=== PATIENT | female | born 1970 | race Caucasian/White ===

== ENCOUNTER → 2016-08-07 | Outpatient (CLI) | payer MEDICARE, MEDICAID | LOC: RAD 13:49 | PROVIDERS: ATTEND Physician Assistant Medical | DX: M25.551 Pain in right hip (principal); M25.552 Pain in left hip; M16.0 Bilateral primary osteoarthritis of hip | CPT/HCPCS: 73522 ==

== ENCOUNTER 2016-09-14 18:10 | Emergency (ER) | payer MEDICARE, MEDICAID ==
--- NOTE | 2016-09-14 18:29 | ER Document Report ---
HPI - HPI Patient complains to provider of: increased number of abscess Onset: Last week Onset/Duration: Worse Quality of pain: Pressure Pain Level: 3 Context: 46 yo morbidly obese diabetic is c/o increased number of abscess. Saw her MD at [facility] and is on clindamycin 150 mg QID, now has new one on the left labia. Hx. MRSA. No fever or chills, glucose is runnin 150-180. Her MD told her to come to ER if she had worsening symptoms, and she had nausea this am. Associated Symptoms: None Exacerbated by: Denies Relieved by: Denies Similar symptoms previously: Yes Recently seen / treated by doctor: Yes - ROS ROS below otherwise negative: Yes Systems Reviewed and Negative: Yes All other systems reviewed and negative - DERM Skin Color: Normal Past Medical History - General Information source: Patient - Social History Smoking Status: Never Smoker Frequency of alcohol use: None Drug Abuse: None Lives with: Alone Family History: Reviewed & Not Pertinent Endocrine Medical History: Reports: Hx Diabetes Mellitus Type 2 Renal/ Medical History: Denies: Hx Peritoneal Dialysis Skin Medical History: Reports Hx MRSA Surgical Hx: Negative Vertical Provider Document - CONSTITUTIONAL Agree With Documented VS: Yes Exam Limitations: No Limitations General Appearance: No Apparent Distress - INFECTION CONTROL TRAVEL OUTSIDE OF THE [place] IN LAST 30 DAYS: No - HEENT HEENT: Normocephalic - NECK Neck: Supple - RESPIRATORY Respiratory: Breath Sounds Normal, No Respiratory Distress O2 Sat by Pulse Oximetry: 98 - CARDIOVASCULAR Cardiovascular: Regular Rate, Regular Rhythm - GI/ABDOMEN Gastrointestinal: Abdomen Soft, Abdomen Non-Tender Notes: 2 draining abscess that are mildly inflamed left mons pubis - REPRODUCTIVE Notes: left labia firm, red, with white central area, warm - MUSCULOSKELETAL/EXTREMETIES Musculoskeletal/Extremeties: BRAXTON MARIE - NEURO Level of Consciousness: Awake, Alert, Appropriate - DERM Integumentary: Abscess - draining, healing mons pubis, Course - Re-evaluation Re-evalutation: 09/14/16 20:30 labs are OK, glucose 166, white count normal - Vital Signs Vital signs: Temp Pulse Resp BP Pulse Ox 98.3 F 102 H 18 135/86 H 98 09/14/16 18:14 09/14/16 18:14 09/14/16 18:14 09/14/16 18:14 09/14/16 18:14 - Laboratory Result Diagrams: 09/14/16 19:10 09/14/16 19:10 Procedures - Incision and Drainage Left Labia Time completed: 20:34 Type: Simple Anesthetic type: 1% Lidocaine mL's of anesthetic: 5 Blade size: 11 I&D procedure: Betadine prep applied, Sterile dressing applied Incision Method: Incision made by scalpel Amount/type of drainage: deroofed, probed, no pus, just blood, inflammatory tissue Discharge - Discharge Clinical Impression: i and d left labia abscess, Folliculitis Condition: Good Disposition: HOME, SELF-CARE Instructions: Folliculitis ([facility]), Abscess ([facility]), Post Incision and Drainage, Clindamycin ([facility]), Bactroban Ointment ([facility]) Additional Instructions: warm compress warm soapy sitz bath use antibacterial soap in shower wound check in 2 days keep close watch on your glucose increase the clindamycin to 300mg four times per day return to the ER if worse use the bactroban on small lesions to prevent them from getting larger small amount of bactroban intranasal twice a day for 5 days Please complete the patient satisfaction survey if you get one, and return it.. If you do not receive a survey, then you can go to the [facility] website, [email or web address] and place your comments about your very good care. Thank you very much. It was a pleasure being your medical provider today. Prescriptions: Clindamycin HCl [Cleocin 150 mg Capsule] 300 mg PO TID #42 capsule
[2016-09-14] MEDS ORDERED: MUPIROCIN 2% OINTMENT 22 GM TP ONE (18:41)
[2016-09-14] MEDS ORDERED: CLINDAMYCIN HCL 150 MG CAPSULE PO ONE (19:03)
[2016-09-14 19:37] LABS: ABSOLUTE BASOPHILS # (AUTO) 0.1 10^3/uL (0.0-0.2); ABSOLUTE EOSINOPHILS # (AUTO) 0.2 10^3/uL (0.0-0.6); ABSOLUTE MONOCYTES (AUTO) 0.5 10^3/uL (0.1-1.4); ABSOLUTE NEUT (AUTO) 5.9 10^3/uL (1.7-8.2); BASOPHILS % (AUTO) 0.6 % (0-2); EOSINOPHILS % (AUTO) 2.5 % (0-6); HEMATOCRIT 41.2 % (36.0-47.0); HEMOGLOBIN 14.1 g/dL (12.0-15.5); HGB HCT DIFFERENCE 1.1; LYMPHOCYTES % (AUTO) 30.6 % (13-45); MEAN CORPUSCULAR HEMOGLOBIN 28.3 pg (27.0-33.4); MEAN CORPUSCULAR HGB CONC 34.3 g/dL (32.0-36.0); MEAN CORPUSCULAR VOLUME 83 fl (80-97); MONOCYTES % (AUTO) 5.6 % (3-13); RED BLOOD COUNT 4.98 10^6/uL (3.72-5.28); SEGMENTED NEUTROPHILS % (AUTO) 60.7 % (42-78); WHITE BLOOD COUNT 9.8 10^3/uL (4.0-10.5)
[2016-09-14] MEDS ORDERED: LIDOCAINE 1% INJ-PF (10 MG/ML) 30 ML SDV INJ ONE (19:42)
[2016-09-14 19:54] LABS: ALANINE AMINOTRANSFERASE 36 U/L (9-52); ALBUMIN 3.9 g/dL (3.5-5.0); ALKALINE PHOSPHATASE 51 U/L (38-126); ANION GAP 11 (5-19); ASPARTATE AMINO TRANSFERASE 21 U/L (14-36); BILIRUBIN,DIRECT 0.3 mg/dL (0.0-0.4); BILIRUBIN,TOTAL 0.3 mg/dL (0.2-1.3); BLOOD UREA NITROGEN 30 mg/dL (7-20); CALCIUM 9.5 mg/dL (8.4-10.2); CARBON DIOXIDE 25 mmol/L (22-30); CHLORIDE 105 mmol/L (98-107); CREATININE RESULT 0.65 mg/dL (0.52-1.25); GLUCOSE 166 mg/dL (75-110); POTASSIUM 4.6 mmol/L (3.6-5.0); SODIUM 140.6 mmol/L (137-145); TOTAL PROTEIN 6.5 g/dL (6.3-8.2)
[2016-09-14 20:55] VITALS: BP 126/60
== END 2016-09-14 20:55 | disposition home or self-care (01) ==
LOC: ER 18:10
PROC: 0H9AXZX Drainage of Inguinal Skin, External Approach, Diagnostic (ICD-10-PCS; principal; 2016-09-14)
DX: N76.4 Abscess of vulva (principal); L73.9 Follicular disorder, unspecified; R11.0 Nausea; E66.01 Morbid (severe) obesity due to excess calories; E11.9 Type 2 diabetes mellitus without complications; Z86.14 Personal history of Methicillin resistant Staphylococcus aureus infection
CPT/HCPCS: 99283; 36415; 87040; 85025; 80053; 56405; A9270 ×2; J3490

== ENCOUNTER 2016-12-28 13:47 | Emergency (ER) | payer MEDICARE, MEDICAID ==
[2016-12-28 13:52] VITALS: BP 136/72
--- NOTE | 2016-12-28 14:33 | ER Document Report ---
ED General - General Chief Complaint: Other Stated Complaint: FOOT PAIN Time Seen by Provider: 12/28/16 14:01 Notes: 46 yo female with hx/o DM, HTN c/o blister to right great toe and possible UTI. pt noted blister today. no pain or redness. pt does have hx/o MRSA and wanted to have the blister checked. she also c/o dysuria x 2 days. has urinary hesitancy. denies fever, abdominal pain , n/v. TRAVEL OUTSIDE OF THE [place] IN LAST 30 DAYS: No - HPI Onset: Other - 3d Onset/Duration: Gradual Quality of pain: Burning Pain Level: 2 Associated symptoms: denies: Allergy/hay fever, Fever, Leg swelling, Nausea Exacerbated by: Denies Relieved by: Denies Similar symptoms previously: Yes Recently seen / treated by doctor: No - Related Data Allergies/Adverse Reactions: No Known Allergies Allergy (Verified 12/28/16 13:49) Past Medical History - General Information source: Patient - Social History Smoking Status: Current Every Day Smoker Chew tobacco use (# tins/day): No Frequency of alcohol use: None Drug Abuse: None Lives with: Family Family History: Reviewed & Not Pertinent - Medical History Medical History: Other - morbid obesity - Past Medical History Cardiac Medical History: Reports: Hx Hypercholesterolemia, Hx Hypertension Endocrine Medical History: Reports: Hx Diabetes Mellitus Type 2 Renal/ Medical History: Denies: Hx Peritoneal Dialysis GI Medical History: Reports: Hx Ulcer Musculoskeltal Medical History: Reports Hx Arthritis Surgical Hx: Negative Review of Systems - Review of Systems Constitutional: No symptoms reported EENT: No symptoms reported Cardiovascular: No symptoms reported Respiratory: No symptoms reported Gastrointestinal: No symptoms reported Genitourinary: See HPI, Burning, Dysuria, Frequency. denies: Discharge, Flank pain, Hematuria, Incontinence, Urgency Female Genitourinary: No symptoms reported Musculoskeletal: No symptoms reported Skin: No symptoms reported Hematologic/Lymphatic: No symptoms reported Neurological/Psychological: No symptoms reported Physical Exam - Vital signs Vitals: Temp Pulse Resp BP Pulse Ox 97.3 F 104 H 20 136/72 H 94 12/28/16 13:49 12/28/16 13:49 12/28/16 13:49 12/28/16 13:49 12/28/16 13:49 Interpretation: Normal - General General appearance: Appears well, Alert In distress: None - HEENT Head: Normocephalic, Atraumatic Eyes: Normal Pupils: PERRL - Respiratory Respiratory status: No respiratory distress Chest status: Nontender Breath sounds: Normal Chest palpation: Normal - Cardiovascular Rhythm: Regular Heart sounds: Normal auscultation Murmur: No - Abdominal Inspection: Normal Distension: No distension Bowel sounds: Normal Tenderness: Nontender Organomegaly: No organomegaly - Back Back: Normal, Nontender. No: CVA tenderness - Extremities General upper extremity: Normal inspection, Nontender, Normal color, Normal ROM , Normal temperature General lower extremity: Normal inspection, Nontender, Normal color, Normal ROM , Normal temperature, Normal weight bearing. No: Judith's sign Foot: Other - large callous to lateral right great toe. discrete bulla lateral to the callous. no surrounding erythema. nontender. no involvement of nail - Neurological Neuro grossly intact: Yes Cognition: Normal Orientation: AAOx4 [place] Coma Scale Eye Opening: Spontaneous [place] Coma Scale Verbal: Oriented [place] Coma Scale Motor: Obeys Commands [place] Coma Scale Total: 15 Speech: Normal Motor strength normal: LUE, RUE, LLE, RLE Sensory: Normal - Psychological Associated symptoms: Normal affect, Normal mood - Skin Skin Temperature: Warm Skin Moisture: Dry Skin Color: Normal Course - Re-evaluation Re-evalutation: 12/28/16 15:21 urinalysis unremarkable. but will start antibiotic based on symptoms and hx/o DM and wait for urine culture. pt is afebrile, nontoxic and stable for discharge. - Vital Signs Vital signs: Temp Pulse Resp BP Pulse Ox 97.3 F 104 H 20 136/72 H 94 12/28/16 13:49 12/28/16 13:49 12/28/16 13:49 12/28/16 13:49 12/28/16 13:49 Discharge - Discharge Clinical Impression: Dysuria Toe blister without infection Qualifiers: Encounter type: initial encounter Laterality: right Qualified Code(s): S90.424A - Blister (nonthermal), right lesser toe(s), initial encounter Condition: Stable Instructions: Urinary Tract Infection ([facility]), Antibiotic Therapy ([facility]), Urinary Anesthetic Agent ([facility]) Additional Instructions: Take antibiotic as prescribed follow up with your primary care if symptoms persist return to ER for high fever, kidney pain or worsening of status Your toe blister is not infected at this time Keep your blister intact, do not pop it If blister pops, apply antibiotic ointment and bandaid and follow up with primary care Prescriptions: Fluconazole [Diflucan] 150 mg PO ONCE PRN #1 tablet PRN Reason: Nitrofurantoin Macrocrystal [Macrodantin] 100 mg PO QID #28 capsule Phenazopyridine HCl [Pyridium 200 mg Tablet] 200 mg PO TID #15 tablet
[2016-12-28 14:58] LABS: AMORPHOUS SEDIMENT,URINE 2+ /HPF; APPEARANCE,URINE TURBID; BILIRUBIN,URINE NEGATIVE (NEGATIVE); GLUCOSE, URINE NEGATIVE (NEGATIVE); KETONES,URINE NEGATIVE (NEGATIVE); LEUKOCYTE ESTERASE,URINE NEGATIVE (NEGATIVE); NITRITE,URINE NEGATIVE (NEGATIVE); PROTEIN,URINE NEGATIVE (NEGATIVE); URINE SPECIFIC GRAVITY 1.021; UROBILINOGEN,URINE NEGATIVE mg/dL (<2.0)
== END 2016-12-28 15:27 | disposition home or self-care (01) ==
LOC: ER 13:47
DX: S90.421A Blister (nonthermal), right great toe, initial encounter (principal); X58.XXXA Exposure to other specified factors, initial encounter; Z86.14 Personal history of Methicillin resistant Staphylococcus aureus infection; R30.0 Dysuria; R39.11 Hesitancy of micturition; R35.0 Frequency of micturition; L84 Corns and callosities; E11.9 Type 2 diabetes mellitus without complications; I10 Essential (primary) hypertension; F17.200 Nicotine dependence, unspecified, uncomplicated
CPT/HCPCS: 81001; 99283

== ENCOUNTER 2017-01-22 23:06 | Emergency (ER) | payer MEDICARE, MEDICAID ==
[2017-01-23 02:49] LABS: ANION GAP 10 (5-19); BLOOD UREA NITROGEN 32 mg/dL (7-20); CALCIUM 9.1 mg/dL (8.4-10.2); CARBON DIOXIDE 26 mmol/L (22-30); CHLORIDE 105 mmol/L (98-107); CREATININE RESULT 0.84 mg/dL (0.52-1.25); GLUCOSE 110 mg/dL (75-110); POTASSIUM 4.9 mmol/L (3.6-5.0); SODIUM 140.6 mmol/L (137-145)
--- NOTE | 2017-01-23 02:56 | ER Document Report ---
ED General - General Chief Complaint: Weakness Stated Complaint: WEAKNESS Time Seen by Provider: 01/23/17 01:56 Notes: Patient is a 46-year-old female with a past medical history of morbid obesity, sleep apnea, chronic pain, on a fentanyl patch who presents with 3 days of generalized fatigue and concerns about a low blood pressure. She was started on the fentanyl patch 3 days ago and notes that her symptoms of generalized fatigue and weakness started since that time. She has not spoken to her pain management physician regarding these concerns. She also notes that she is having difficulty urinating although admits that she has urinated today. She denies any cough, shortness of breath, headache, neck pain, chest pain, or altered mental status. No fever or constitutional symptoms. Denies any vomiting or diarrhea. Nothing seems to improve or worsen her symptoms. When EMS did write patient's home they removed the fentanyl patch and patient blood pressure has been noted to normalize since that time. TRAVEL OUTSIDE OF THE [place] IN LAST 30 DAYS: No - Related Data Allergies/Adverse Reactions: No Known Allergies Allergy (Verified 01/09/17 18:26) Past Medical History - General Information source: Patient - Social History Smoking Status: Never Smoker Frequency of alcohol use: None Drug Abuse: None Lives with: Family Family History: Arthritis, DM Patient has suicidal ideation: No Patient has homicidal ideation: No - Past Medical History Cardiac Medical History: Reports: Hx Hypercholesterolemia, Hx Hypertension Endocrine Medical History: Reports: Hx Diabetes Mellitus Type 2 Renal/ Medical History: Denies: Hx Peritoneal Dialysis GI Medical History: Reports: Hx Ulcer Musculoskeltal Medical History: Reports Hx Arthritis Psychiatric Medical History: Reports: Hx Depression - anxiety Past Surgical History: Reports: Other - Ventral hernia repair Review of Systems - Review of Systems Notes: Constitutional: Negative for fever. HENT: Negative for sore throat. Eyes: Negative for visual changes. Cardiovascular: Negative for chest pain. Respiratory: Negative for shortness of breath. Gastrointestinal: Negative for abdominal pain, vomiting or diarrhea. Genitourinary: Negative for dysuria. Musculoskeletal: Negative for back pain. Skin: Negative for rash. Neurological: Negative for headaches, weakness or numbness. 10 point ROS negative except as marked above and in HPI. Physical Exam - Vital signs Vitals: Temp Pulse Resp BP Pulse Ox 97.7 F 70 18 112/52 L 94 01/22/17 23:24 01/22/17 23:24 01/22/17 23:24 01/22/17 23:24 01/22/17 23:24 Interpretation: Normal Notes: PHYSICAL EXAMINATION: GENERAL: Morbidly obese female in no acute distress HEAD: Atraumatic, normocephalic. EYES: Pupils equal round and reactive to light, extraocular movements intact, sclera anicteric, conjunctiva are normal. ENT: nares patent, oropharynx clear without exudates. Moderately dry mucous membranes. NECK: Normal range of motion, supple without lymphadenopathy LUNGS: Breath sounds clear to auscultation bilaterally and equal. No wheezes rales or rhonchi. HEART: Regular rate and rhythm without murmurs ABDOMEN: Morbidly obese abdomen soft, nontender, normoactive bowel sounds. No guarding, no rebound. No masses appreciated. EXTREMITIES: Normal range of motion, no pitting or edema. No cyanosis. NEUROLOGICAL: No focal neurological deficits. Moves all extremities spontaneously and on command. PSYCH: Normal mood, normal affect. SKIN: Warm, Dry, normal turgor, no rashes or lesions noted. Course - Re-evaluation Re-evalutation: 01/23/17 02:55 Patient presents with multiple vague complaints that did not appear to be concerning for any acute life-threatening pathology. Vitals are within normal limits at triage and at time of discharge. Physical examination is unremarkable. Patient has tolerated oral intake without difficulty. Patient was not noted to be in distress at any point during their ER visit. Labs unremarkable. Suspect that this may be secondary to the patient's fentanyl patch which I have encouraged her to discontinue as there is no indication for this and she does need to lose weight to control her chronic back pain. At this time, based on the reassuring evaluation, I do not suspect an acute [place], pulmonary embolus, aortic dissection, acute intra-abdominal pathology, stroke, or sepsis.Will discharge with return precautions and follow-up recommendations. Verbal discharge instructions given a the bedside and opportunity for questions given. Medication warnings reviewed. Patient is in agreement with this plan and has verbalized understanding of return precautions and the need for primary care follow-up in the next 24-72 hours. - Vital Signs Vital signs: Temp Pulse Resp BP Pulse Ox 97.7 F 62 18 109/87 H 98 01/22/17 23:24 01/23/17 02:31 01/23/17 02:31 01/23/17 02:31 01/23/17 02:31 - Laboratory Result Diagrams: 01/23/17 02:16 Laboratory results interpreted by me: 01/23/17 01/23/17 01/23/17 02:13 02:13 02:16 BUN 32 H POC Glucose 113 H 113 H Discharge - Discharge Clinical Impression: Morbid obesity with BMI of 50.0-59.9, adult, Generalized weakness Chronic pain Qualifiers: Chronic pain type: chronic pain syndrome Qualified Code(s): G89.4 - Chronic pain syndrome Condition: Good Disposition: HOME, SELF-CARE Additional Instructions: Your labs are normal. Please consider discontinuing the fentanyl patch as this likely is contributing to your symptoms. Please return to the emergency room immediately if you experience any concerning symptoms including high fevers, severe headache, chest pain, difficulty breathing, abdominal pain, slurred speech, numbness or weakness in your arms or legs, or any other symptom that concerns you. As we discussed today, please strongly consider losing weight. Your obesity will result in a shorter life and serious diagnoses including heart attacks, stroke, diabetes, high blood pressure, high cholesterol, kidney failure, and will also result in a much less enjoyable life due to these chronic conditions. Focus on gradual life style changes including removing sugared beverages and processed foods from your diet abd at least 30 minutes of moderate activity daily. Try to target 4-5lbs of weight loss per month.
[2017-01-23 03:12] LABS: APPEARANCE,URINE CLEAR; BILIRUBIN,URINE NEGATIVE (NEGATIVE); GLUCOSE, URINE NEGATIVE (NEGATIVE); KETONES,URINE NEGATIVE (NEGATIVE); LEUKOCYTE ESTERASE,URINE NEGATIVE (NEGATIVE); NITRITE,URINE NEGATIVE (NEGATIVE); PROTEIN,URINE NEGATIVE (NEGATIVE); URINE SPECIFIC GRAVITY 1.018; UROBILINOGEN,URINE NEGATIVE mg/dL (<2.0)
[2017-01-23 04:22] VITALS: BP 104/67
== END 2017-01-23 04:21 | disposition home or self-care (01) ==
LOC: ER 23:06
DX: E66.01 Morbid (severe) obesity due to excess calories (principal); Z68.43 Body mass index [BMI] 50.0-59.9, adult; G89.4 Chronic pain syndrome; R53.1 Weakness; E78.00 Pure hypercholesterolemia, unspecified; I10 Essential (primary) hypertension; E11.9 Type 2 diabetes mellitus without complications
CPT/HCPCS: 36415; 80048; 81001; 82962; 84703; 99285

== ENCOUNTER 2017-02-02 09:54 | Emergency (ER) | payer MEDICARE, MEDICAID ==
[2017-02-02] MEDS ORDERED: OXYCODONE-ACETAMINOPHEN 5-325 MG TABLET PO ONE (10:30)
[2017-02-02] MEDS ORDERED: LIDOCAINE 1% INJ-PF (10 MG/ML) 30 ML SDV INJ ONE (10:30)
[2017-02-02] MEDS ORDERED: ONDANSETRON 4 MG TAB.RAPDIS PO ONE (10:30)
--- NOTE | 2017-02-02 10:31 | ER Document Report ---
ED Medical Screen (RME) - General Chief Complaint: Abscess Stated Complaint: POSSIBLE ABSCESS Time Seen by Provider: 02/02/17 10:26 Mode of Arrival: Ambulatory Information source: Patient Notes: 46-year-old female presents with complaint of 2 labial abscesses, notes one was previously drained on Thursday and has worsened patient was placed on Bactrim I have greeted and performed a rapid initial assessment of this patient. A comprehensive ED assessment and evaluation of the patient, analysis of test results and completion of the medical decision making process will be conducted by additional ED providers. PHYSICAL EXAMINATION: GENERAL: Well-appearing, well-nourished and in no acute distress. HEAD: Atraumatic, normocephalic. EYES: Pupils equal round extraocular movements intact, conjunctiva are normal. ENT: Nares patent NECK: Normal range of motion LUNGS: No respiratory distress Musculoskeletal: Normal range of motion NEUROLOGICAL: Normal speech, normal gait. PSYCH: Normal mood, normal affect. SKIN: Warm, Dry, normal turgor, no rashes or lesions noted. TRAVEL OUTSIDE OF THE [place] IN LAST 30 DAYS: No - Related Data Allergies/Adverse Reactions: brompheniramine [From Lodrane D] Allergy (Verified 02/02/17 10:31) clotrimazole [From Mycelex] Allergy (Verified 02/02/17 10:31) pseudoephedrine [From Lodrane D] Allergy (Verified 02/02/17 10:31) Past Medical History - Past Medical History Cardiac Medical History: Reports: Hx Hypercholesterolemia, Hx Hypertension Endocrine Medical History: Reports: Hx Diabetes Mellitus Type 2 Renal/ Medical History: Denies: Hx Peritoneal Dialysis GI Medical History: Reports: Hx Ulcer Musculoskeltal Medical History: Reports Hx Arthritis Psychiatric Medical History: Reports: Hx Depression - anxiety Past Surgical History: Reports: Other - Ventral hernia repair Physical Exam - Vital signs Vitals: Temp Pulse Resp BP Pulse Ox 97.7 F 83 24 H 126/63 H 96 02/02/17 09:57 02/02/17 09:57 02/02/17 09:57 02/02/17 09:57 02/02/17 09:57 Course - Vital Signs Vital signs: Temp Pulse Resp BP Pulse Ox 97.7 F 83 24 H 126/63 H 96 02/02/17 09:57 02/02/17 09:57 02/02/17 09:57 02/02/17 09:57 02/02/17 09:57
--- NOTE | 2017-02-02 10:51 | ER Document Report ---
ED Skin Rash/Insect Bite/Abscs - General Chief Complaint: Abscess Stated Complaint: POSSIBLE ABSCESS Time Seen by Provider: 02/02/17 10:26 Mode of Arrival: Ambulatory Information source: Patient TRAVEL OUTSIDE OF THE [place] IN LAST 30 DAYS: No - HPI Patient complains to provider of: Tender/swollen area Onset: Last week Onset/Duration: Gradual, Persistent, Worse Quality of pain: Fullness, Pressure Severity: Moderate Pain Level: 4 Skin Character: Abscess Skin Temperature: Warm Quality of rash: Painful Identify cause: No Similar symptoms previously: Yes Recently seen / treated by doctor: Yes Notes: Patient is a 46-year-old female with multiple medical problems, presenting to the emergency room today complaining of left labial swelling with abscess, she was seen by her primary care provider on Thursday of last week and had the abscess drained, she went back for follow-up today and her symptoms are much worse, she has been taking Bactrim by mouth at home with no relief of symptoms also, she does have a history of MRSA abscesses in the past, also diabetic with hypertension, high cholesterol, fibromyalgia, chronic kidney disease, apparently the primary care provider attempted to send patient to the wound care clinic with plastic surgeon, Dr. Griffin who recommended she come to the emergency room instead - Related Data Allergies/Adverse Reactions: brompheniramine [From Lodrane D] Allergy (Verified 02/02/17 10:31) clotrimazole [From Mycelex] Allergy (Verified 02/02/17 10:31) pseudoephedrine [From Lodrane D] Allergy (Verified 02/02/17 10:31) Past Medical History - General Information source: Patient - Social History Smoking Status: Current Every Day Smoker Chew tobacco use (# tins/day): No Frequency of alcohol use: None Drug Abuse: None Family History: Arthritis, DM - Past Medical History Cardiac Medical History: Reports: Hx Hypercholesterolemia, Hx Hypertension Endocrine Medical History: Reports: Hx Diabetes Mellitus Type 2 Renal/ Medical History: Denies: Hx Peritoneal Dialysis GI Medical History: Reports: Hx Ulcer Musculoskeltal Medical History: Reports Hx Arthritis Psychiatric Medical History: Reports: Hx Depression - anxiety Past Surgical History: Reports: Other - Ventral hernia repair Review of Systems - Review of Systems Constitutional: No symptoms reported EENT: No symptoms reported Cardiovascular: No symptoms reported Respiratory: No symptoms reported Gastrointestinal: No symptoms reported Genitourinary: No symptoms reported Female Genitourinary: See HPI Musculoskeletal: No symptoms reported Skin: No symptoms reported Hematologic/Lymphatic: No symptoms reported Neurological/Psychological: No symptoms reported -: Yes All other systems reviewed and negative Physical Exam - Vital signs Vitals: Temp Pulse Resp BP Pulse Ox 97.7 F 83 24 H 126/63 H 96 02/02/17 09:57 02/02/17 09:57 02/02/17 09:57 02/02/17 09:57 02/02/17 09:57 - Notes Notes: - General General appearance: Appears well, Alert In distress: None - HEENT Head: Normocephalic, Atraumatic Eyes: Normal Conjunctiva: Normal Extraocular movements intact: Yes Eyelashes: Normal Pupils: PERRL - Respiratory Respiratory status: No respiratory distress - Cardiovascular Rhythm: Regular - Abdominal Inspection: Normal, morbidly obese - Back Back: Normal - Extremities General upper extremity: Normal inspection General lower extremity: Normal inspection - Neurological Neuro grossly intact: Yes Orientation: AAOx4 [place] Coma Scale Eye Opening: Spontaneous [place] Coma Scale Verbal: Oriented [place] Coma Scale Motor: Obeys Commands [place] Coma Scale Total: 15 - Psychological Associated symptoms: Normal affect, Normal mood - Skin Skin Temperature: Warm Skin Moisture: Dry Skin Color: Normal - Genitourinary External exam: Other - Large area of swelling with erythema and fluctuance to left labia, tender to palpate Course - Re-evaluation Re-evalutation: 02/02/17 11:31 I&D was performed on abscess to left labia, small amount of packing was placed in the open wound, patient was advised to continue taking her Bactrim, follow- up with primary care or [facility] in 2-3 days or return if symptoms worsen, patient and sister at bedside acknowledge understanding and agreement with this plan - Vital Signs Vital signs: Temp Pulse Resp BP Pulse Ox 97.7 F 83 24 H 126/63 H 96 02/02/17 09:57 02/02/17 09:57 02/02/17 09:57 02/02/17 09:57 02/02/17 09:57 Procedures - Incision and Drainage Left Labia Time completed: 11:31 Type: Simple Anesthetic type: 1% Lidocaine mL's of anesthetic: 3 Blade size: 11 I&D procedure: Shurclens applied, Iodoform packing placed Incision Method: Incision made by scalpel Amount/type of drainage: Small amount of purulent drainage Female anatomy: 1 - Bartholin's gland abscess Discharge - Discharge Clinical Impression: Bartholin's gland abscess Condition: Stable Disposition: HOME, SELF-CARE Instructions: Abscess ([facility]), MRSA Cellulitis ([facility]), Post Incision and Drainage , Trimethoprim-Sulfa ([facility]) Additional Instructions: Follow up with your primary care provider and [facility] in one to 2 days. Return to the emergency room immediately if symptoms worsen or any additional concerns.
[2017-02-02 11:46] VITALS: BP 136/87
== END 2017-02-02 11:46 | disposition home or self-care (01) ==
LOC: ER 09:54
PROC: 0U9L0ZZ Drainage of Vestibular Gland, Open Approach (ICD-10-PCS; principal; 2017-02-02)
DX: N75.1 Abscess of Bartholin's gland (principal); F17.200 Nicotine dependence, unspecified, uncomplicated; E78.00 Pure hypercholesterolemia, unspecified; I10 Essential (primary) hypertension; E11.9 Type 2 diabetes mellitus without complications; Z86.14 Personal history of Methicillin resistant Staphylococcus aureus infection
CPT/HCPCS: 99283; 56420; A9270 ×2; J3490; S0119

== ENCOUNTER 2017-03-27 23:43 | Inpatient (IN) | payer MEDICARE, MEDICAID ==
--- NOTE | 2017-03-28 01:37 | ER Document Report ---
ED Medical Screen (RME) - General Chief Complaint: Abdominal Pain Stated Complaint: ABDOMINAL PAIN Time Seen by Provider: 03/28/17 01:35 Mode of Arrival: Ambulatory Information source: Patient Notes: Patient presents complaining of abdominal pain across her mid abdomen that radiates around to the right flank area. Patient states she has had this pain for the past 2 days. Patient does report some nausea. Patient denies any vomiting, diarrhea, fever or urinary symptoms. Patient denies any cough or cold symptoms. hx: Diabetes, hypertension, dyslipidemia, hernia repair TRAVEL OUTSIDE OF THE [place] IN LAST 30 DAYS: No - Related Data Allergies/Adverse Reactions: brompheniramine [From Lodrane D] Allergy (Verified 02/02/17 10:31) clotrimazole [From Mycelex] Allergy (Verified 02/02/17 10:31) pseudoephedrine [From Lodrane D] Allergy (Verified 02/02/17 10:31) Past Medical History - Past Medical History Cardiac Medical History: Reports: Hx Hypercholesterolemia, Hx Hypertension Endocrine Medical History: Reports: Hx Diabetes Mellitus Type 2 Renal/ Medical History: Denies: Hx Peritoneal Dialysis GI Medical History: Reports: Hx Ulcer Musculoskeltal Medical History: Reports Hx Arthritis Psychiatric Medical History: Reports: Hx Depression - anxiety Past Surgical History: Reports: Other - Ventral hernia repair Physical Exam - Vital signs Vitals: Temp Pulse Resp BP Pulse Ox 98.6 F 96 20 143/76 H 96 03/28/17 00:01 03/28/17 00:01 03/28/17 00:01 03/28/17 00:01 03/28/17 00:01 - Abdominal Inspection: Morbidly Obese Tenderness: Tender - Tenderness across mid abdomen Course - Vital Signs Vital signs: Temp Pulse Resp BP Pulse Ox 98.6 F 96 20 143/76 H 96 03/28/17 00:01 03/28/17 00:01 03/28/17 00:01 03/28/17 00:01 03/28/17 00:01 - Laboratory Result Diagrams: 03/28/17 01:15 03/28/17 01:15
[2017-03-28 01:42] LABS: ABSOLUTE BASOPHILS # (AUTO) 0.1 10^3/uL (0.0-0.2); ABSOLUTE EOSINOPHILS # (AUTO) 0.2 10^3/uL (0.0-0.6); ABSOLUTE LYMPHOCYTES (AUTO) 2.8 10^3/uL (0.5-4.7); ABSOLUTE MONOCYTES (AUTO) 0.6 10^3/uL (0.1-1.4); ABSOLUTE NEUT (AUTO) 5.3 10^3/uL (1.7-8.2); BASOPHILS % (AUTO) 0.9 % (0-2); EOSINOPHILS % (AUTO) 2.8 % (0-6); HEMATOCRIT 43.9 % (36.0-47.0); HEMOGLOBIN 14.7 g/dL (12.0-15.5); HGB HCT DIFFERENCE 0.2; LYMPHOCYTES % (AUTO) 30.9 % (13-45); MEAN CORPUSCULAR HGB CONC 33.5 g/dL (32.0-36.0); MEAN CORPUSCULAR VOLUME 84 fl (80-97); MONOCYTES % (AUTO) 6.9 % (3-13); RED BLOOD COUNT 5.25 10^6/uL (3.72-5.28); RED CELL DISTRIBUTION WIDTH 15.5 % (11.5-14.0); SEGMENTED NEUTROPHILS % (AUTO) 58.5 % (42-78)
[2017-03-28 01:43] LABS: APPEARANCE,URINE CLEAR; BILIRUBIN,URINE NEGATIVE (NEGATIVE); GLUCOSE, URINE >=500 mg/dL (NEGATIVE); KETONES,URINE NEGATIVE (NEGATIVE); LEUKOCYTE ESTERASE,URINE NEGATIVE (NEGATIVE); NITRITE,URINE NEGATIVE (NEGATIVE); PROTEIN,URINE NEGATIVE (NEGATIVE); URINE SPECIFIC GRAVITY 1.021; UROBILINOGEN,URINE NEGATIVE mg/dL (<2.0)
[2017-03-28 02:16] LABS: ALANINE AMINOTRANSFERASE 51 U/L (9-52); ALBUMIN 4.4 g/dL (3.5-5.0); ALKALINE PHOSPHATASE 41 U/L (38-126); ANION GAP 12 (5-19); ASPARTATE AMINO TRANSFERASE 23 U/L (14-36); BILIRUBIN,DIRECT 0.5 mg/dL (0.0-0.4); BILIRUBIN,TOTAL 0.5 mg/dL (0.2-1.3); BLOOD UREA NITROGEN 28 mg/dL (7-20); CALCIUM 9.6 mg/dL (8.4-10.2); CARBON DIOXIDE 28 mmol/L (22-30); CHLORIDE 103 mmol/L (98-107); CREATININE RESULT 0.76 mg/dL (0.52-1.25); GLUCOSE 187 mg/dL (75-110); LIPASE 57.6 U/L (23-300); POTASSIUM 4.8 mmol/L (3.6-5.0); SODIUM 142.5 mmol/L (137-145); TOTAL PROTEIN 7.1 g/dL (6.3-8.2)
[2017-03-28] MEDS ORDERED: FENTANYL CITRATE INJ/PF 100 MCG/2 ML AMPUL IV ONE (02:28)
[2017-03-28] MEDS ORDERED: ONDANSETRON HCL INJ/PF 4 MG/2 ML SDV IV ONE ×2 (02:28→05:00)
[2017-03-28] MEDS ORDERED: NORMAL SALINE 1000 ML 1,000 ML IV ONE (03:19)
--- NOTE | 2017-03-28 03:20 | ER Document Report ---
ED GI/ - General Chief Complaint: Abdominal Pain Stated Complaint: ABDOMINAL PAIN Time Seen by Provider: 03/28/17 01:35 Mode of Arrival: Ambulatory Notes: Patient is a 46-year-old female who comes emergency department for chief complaint of mid abdominal pain. She has a known hernia in the area, she states that 5 years ago she had this repaired with double mesh but the mesh ripped, she states that over the past several months it has aggressively worsened and has become more difficult to push back in. She states she was able to reduce it yesterday. She states that the pain became constant this evening and she was unable to reduce it. She denies vomiting, she has moved her bowels normally within the past 24 hours, she denies fever. Past medical history of type 2 diabetes, hypertension, hyperlipidemia, morbid obesity. TRAVEL OUTSIDE OF THE [place] IN LAST 30 DAYS: No - Related Data Allergies/Adverse Reactions: brompheniramine [From Lodrane D] Allergy (Verified 02/02/17 10:31) clotrimazole [From Mycelex] Allergy (Verified 02/02/17 10:31) pseudoephedrine [From Lodrane D] Allergy (Verified 02/02/17 10:31) Past Medical History - General Information source: Patient - Social History Smoking Status: Never Smoker Frequency of alcohol use: None Drug Abuse: None Lives with: Family Family History: Arthritis, DM - Past Medical History Cardiac Medical History: Reports: Hx Hypercholesterolemia, Hx Hypertension Endocrine Medical History: Reports: Hx Diabetes Mellitus Type 2 Renal/ Medical History: Denies: Hx Peritoneal Dialysis GI Medical History: Reports: Hx Ulcer Musculoskeltal Medical History: Reports Hx Arthritis Psychiatric Medical History: Reports: Hx Depression - anxiety Past Surgical History: Reports: Other - Ventral hernia repair Review of Systems - Review of Systems Constitutional: No symptoms reported EENT: No symptoms reported Cardiovascular: No symptoms reported Respiratory: No symptoms reported Gastrointestinal: See HPI Genitourinary: No symptoms reported Female Genitourinary: No symptoms reported Musculoskeletal: No symptoms reported Skin: No symptoms reported Hematologic/Lymphatic: No symptoms reported Neurological/Psychological: No symptoms reported Physical Exam - Vital signs Vitals: Temp Pulse Resp BP Pulse Ox 98.6 F 96 20 143/76 H 96 03/28/17 00:01 03/28/17 00:01 03/28/17 00:01 03/28/17 00:01 03/28/17 00:01 Interpretation: Normal - General General appearance: Appears well In distress: None - HEENT Head: Normocephalic, Atraumatic Eyes: Normal Pupils: PERRL - Respiratory Respiratory status: No respiratory distress Chest status: Nontender Breath sounds: Normal. No: Decreased air movement, Wheezing Chest palpation: Normal - Cardiovascular Rhythm: Regular Heart sounds: Normal auscultation Murmur: No - Abdominal Inspection: Normal Distension: No distension Bowel sounds: Normal Tenderness: Tender - Ventral hernia noted, hardened tissue, no surrounding erythema, painful to palpation. Remaining abdomen is benign. Organomegaly: No organomegaly - Back Back: Normal, Nontender. No: Tender - Extremities General upper extremity: Normal inspection, Nontender, Normal strength, Normal temperature General lower extremity: Normal inspection, Nontender, Normal strength, Normal temperature - Neurological Neuro grossly intact: Yes Cognition: Normal Orientation: AAOx4 Christian Coma Scale Eye Opening: Spontaneous [place] Coma Scale Verbal: Oriented [place] Coma Scale Motor: Obeys Commands [place] Coma Scale Total: 15 Speech: Normal Motor strength normal: LUE, RUE, LLE, RLE Sensory: Normal - Psychological Associated symptoms: Normal affect, Normal mood - Skin Skin Temperature: Warm Skin Moisture: Dry Skin Color: Normal Course - Re-evaluation Re-evalutation: Area is tender to palpation and somewhat firm. Patient requesting attempted reduction so she can go home. Patient was given fentanyl, attempted reduction was performed, unable to reduce. Dr. Martell came to bedside and evaluated the patient, also unable to reduce. 03/28/17 03:15 Called and spoke with Dr. Erwin, surgery computational chemist. He requests Ct abd/pelvis with IV and oral contrast. CBC, chemistry, lactic acid, urinalysis unremarkable except for mild hyperglycemia with no acidosis. 03/28/17 03:45 Dr. Erwin evaluated patient at bedside, unable to reduce hernia. Recommends CAT scan at this time. Patient will be kept n.p.o., given IV fluids. 03/28/17 06:[address] Mays called me, reports that the ventral hernia has small bowel that is dilated, obstructed, and appears incarcerated on CAT scan. Giving Invanz. Attempted to re-contact surgeon on-call, voice message was left. 03/28/17 06:57 Dr. Erwin called back, states he saw the cat scan, states he is about to speak to Dr. Lucas and plans will be made to take the patient to the OR. 03/28/17 07:20 Dr. Lucas in to see the patient. - Vital Signs Vital signs: Temp Pulse Resp BP Pulse Ox 98.6 F 96 20 143/76 H 96 03/28/17 00:01 03/28/17 00:01 03/28/17 00:01 03/28/17 00:01 03/28/17 00:01 - Laboratory Result Diagrams: 03/28/17 01:15 03/28/17 01:15 Laboratory results interpreted by me: 03/28/17 03/28/17 03/28/17 01:15 01:15 01:15 RDW 15.5 H BUN 28 H Glucose 187 H Direct Bilirubin 0.5 H Urine Glucose (UA) >=500 H Discharge - Discharge Clinical Impression: Incarcerated ventral hernia Condition: Serious Disposition: ADMITTED INPATIENT Admitting Provider: Surgicalist Unit Admitted: OR
[2017-03-28] MEDS ORDERED: NORMAL SALINE 1000 ML 1,000 ML IV PRN (03:47)
--- NOTE | 2017-03-28 04:16 | PDOC CONSULTATION ---
Consultation Consult Date: 03/28/17 Attending physician:: LIZETH LAM Consult reason:: Abdominal pain with nausea History of Present Illness History of Present Illness: KATHLEEN HARDING is a 46 year old female who had umbilical hernia repaired in [place] with the use of double mesh about 5 years ago. Patient was seen in the ED in January for enteritis. She did have incarcerated recurrent umbilical hernia at the time but the CAT scan showed no bowel that is incarcerated and it is only fatty tissue likely omentum. Patient complaining of pains in the umbilical area for the past 3 days and gotten worse last night. She has incarcerated umbilical hernia. I tried to reduce the hernia in the emergency room but was not able to do so. At any rate CAT scan of the abdomen will be done with p.o. contrast and IV contrast. Patient is morbidly obese Past Medical History Cardiac Medical History: Reports: Hyperlipidema, Hypertension Pulmonary Medical History: Reports: Asthma Endocrine Medical History: Reports: Diabetes Mellitus Type 2 Musculoskeltal Medical History: Reports: Arthritis Psychiatric Medical History: Reports: Depression - anxiety Past Surgical History Past Surgical History: Reports: Other - Ventral/umbilical hernia repair with mesh 5 years ago in [place] Social History Smoking Status: Current Every Day Smoker Cigarettes Packs Per Day: 1 Frequency of Alcohol Use: Rare Hx Recreational Drug Use: No Drugs: None Hx Prescription Drug Abuse: No - Advance Directive Resuscitation Status: Full Code Family History Family History: Arthritis, DM Parental Family History Reviewed: Yes - Father of kidney failure and mother due to [place] Children Family History Reviewed: No Sibling(s) Family History Reviewed.: No Medication/Allergy Home Medications: Aripiprazole [Abilify] 20 mg PO DAILY 01/10/17 Baclofen [Baclofen 20 Mg Tablet] 20 mg PO Q6HP PRN 01/10/17 Ciprofloxacin HCl [Cipro 500 mg Tablet] 500 mg PO BID #14 tablet 01/10/17 Diazepam 2 mg PO Q12HP PRN 01/10/17 Dulaglutide [Trulicity] 1.5 mg SQ TRUONG@10 01/10/17 Fenofibrate Nanocrystallized [Fenofibrate] 145 mg PO DAILY 01/10/17 Fluticasone Propionate [Flonase Nasal [place] 50 Mcg/[place] 16 gm] 2 sprays NAREB DAILY 01/10/17 Furosemide [Lasix 40 mg Tablet] 40 mg PO BIDP PRN 01/10/17 Insulin Lispro [Humalog Kwikpen U-100] 70 unit SQ WSUPPER 01/10/17 Insulin Lispro [Humalog Kwikpen U-100] 75 units SQ BIDACBL 01/10/17 Lisinopril [Prinivil 40 mg Tablet] 40 mg PO DAILY 01/10/17 Lubiprostone [Amitiza 24 Mcg Capsule] 24 mcg PO BIDP PRN 01/10/17 Metformin HCl [Metformin HCl ER] 1,000 mg PO QHS 01/10/17 Metformin HCl [Metformin HCl ER] 500 mg PO ACBRKFST 01/10/17 Metronidazole [Flagyl 500 mg Tablet] 500 mg PO TID #21 tablet 01/10/17 Morphine Sulfate [Morphine Ir 15 mg Tablet] 15 mg PO Q12HP PRN 01/10/17 Morphine Sulfate/Naltrexone [Embeda ER 30-1.2 mg Capsule] 1 tab PO QHS 01/10/17 Omeprazole 40 mg PO ACBRKFST 01/10/17 Oxcarbazepine [Trileptal] 300 mg PO Q12 01/10/17 Rosuvastatin Calcium [Crestor 10 mg Tablet] 10 mg PO QHS 01/10/17 Venlafaxine HCl [Effexor] 50 mg PO QHS 01/10/17 Allergies/Adverse Reactions: brompheniramine [From Lodrane D] Allergy (Verified 02/02/17 10:31) clotrimazole [From Mycelex] Allergy (Verified 02/02/17 10:31) pseudoephedrine [From Lodrane D] Allergy (Verified 02/02/17 10:31) Review of Systems Constitutional: PRESENT: other - Denies fever or night sweats Eyes: PRESENT: other - No visible lower ear changes Ears: ABSENT: hearing changes Nose, Mouth, and Throat: PRESENT: other - No sore throat Cardiovascular: PRESENT: other - No chest pain Respiratory: PRESENT: other - No shortness of breath Gastrointestinal: PRESENT: as per HPI Genitourinary: ABSENT: dysuria, hematuria Musculoskeletal: PRESENT: back pain Integumentary: PRESENT: other - No skin rash Neurological: PRESENT: other - No seizure disorder Psychiatric: PRESENT: other - No suicidal ideation Endocrine: PRESENT: other - Polyuria no polydipsia Hematologic/Lymphatic: PRESENT: other - No easy bruisability or lymphadenopathy Physical Exam Vital Signs: Temp Pulse Resp BP Pulse Ox 98.6 F 96 20 143/76 H 96 03/28/17 00:01 03/28/17 00:01 03/28/17 00:01 03/28/17 00:01 03/28/17 00:01 Intake & Output 03/26/17 03/27/17 03/28/17 06:59 06:59 06:59 Weight 143.7 kg General appearance: PRESENT: mild distress, morbidly obese Head exam: PRESENT: atraumatic Eye exam: PRESENT: conjunctiva pink Ear exam: PRESENT: normal external ear exam Mouth exam: PRESENT: moist, tongue midline Neck exam: PRESENT: other - No thyromegaly Respiratory exam: PRESENT: clear to auscultation barry Cardiovascular exam: PRESENT: RRR Pulses: PRESENT: normal radial pulses Vascular exam: PRESENT: normal capillary refill GI/Abdominal exam: PRESENT: tenderness - Has tender mass in the umbilical area. Umbilicus is been removed. The rest of the abdomen is soft and nontender Rectal exam: PRESENT: deferred Extremities exam: PRESENT: full ROM Musculoskeletal exam: PRESENT: ambulatory Neurological exam: PRESENT: alert, oriented to person, oriented to place, oriented to time, oriented to situation Psychiatric exam: PRESENT: appropriate affect Skin exam: PRESENT: normal color, warm Results Laboratory Results: 03/28/17 01:15 03/28/17 01:15 03/28/17 03/28/17 03/28/17 01:15 01:15 01:15 WBC 9.0 RBC 5.25 Hgb 14.7 Hct 43.9 MCV 84 MCH 28.0 MCHC 33.5 RDW 15.5 H Plt Count 198 Seg Neutrophils % 58.5 Lymphocytes % 30.9 Monocytes % 6.9 Eosinophils % 2.8 Basophils % 0.9 Absolute Neutrophils 5.3 Absolute Lymphocytes 2.8 Absolute Monocytes 0.6 Absolute Eosinophils 0.2 Absolute Basophils 0.1 Sodium 142.5 Potassium 4.8 Chloride 103 Carbon Dioxide 28 Anion Gap 12 BUN 28 H Creatinine 0.76 Est GFR ( Amer) > 60 Est GFR (Non-Af Amer) > 60 Glucose 187 H Lactic Acid Calcium 9.6 Total Bilirubin 0.5 AST 23 ALT 51 Alkaline Phosphatase 41 Total Protein 7.1 Albumin 4.4 Lipase 57.6 Urine Color YELLOW Urine Appearance CLEAR Urine pH 5.0 Ur Specific [place] 1.021 Urine Protein NEGATIVE Urine Glucose (UA) >=500 H Urine Ketones NEGATIVE Urine Blood NEGATIVE Urine Nitrite NEGATIVE Ur Leukocyte Esterase NEGATIVE Urine WBC (Auto) 2 Urine RBC (Auto) 0 03/28/17 02:30 WBC RBC Hgb Hct MCV MCH MCHC RDW Plt Count Seg Neutrophils % Lymphocytes % Monocytes % Eosinophils % Basophils % Absolute Neutrophils Absolute Lymphocytes Absolute Monocytes Absolute Eosinophils Absolute Basophils Sodium Potassium Chloride Carbon Dioxide Anion Gap BUN Creatinine Est GFR ( Amer) Est GFR (Non-Af Amer) Glucose Lactic Acid 1.7 Calcium Total Bilirubin AST ALT Alkaline Phosphatase Total Protein Albumin Lipase Urine Color Urine Appearance Urine pH Ur Specific [place] Urine Protein Urine Glucose (UA) Urine Ketones Urine Blood Urine Nitrite Ur Leukocyte Esterase Urine WBC (Auto) Urine RBC (Auto) Assessment & Plan - Time Time Spent: 30 to 50 Minutes - Plan Summary Plan Summary: #1 patient for a CAT scan of the abdomen and pelvis with p.o. and and IV contrast 2. Keep patient n.p.o. and start IV fluids 3. I attempted to reduce the ventral hernia but was unsuccessful. We will check the status of the hernia with a CAT scan and see if patient needed to go to the OR for repair of the hernia especially if there is bowel inside the hernia. By the time the CAT scan is done Dr. Lucas will take over to further evaluate the patient's status
[2017-03-28] MEDS ORDERED: HYDROMORPHONE HCL INJ/PF 2 MG/ML AMPULE IV ONE (05:00)
--- NOTE | 2017-03-28 06:39 | RADIOLOGY REPORT (SQ) ---
EXAM DESCRIPTION: CT ABDOMEN AND PELVIS WITH CONTRAST CLINICAL HISTORY: Diffuse abd pain, large ventral hernia COMPARISON: None Available. TECHNIQUE: CT of the abdomen and pelvis are performed during IV bolus administration of 100 mL of Isovue-370. Portal venous and delayed phase images obtained. DLP: 3143.13 mGycm FINDINGS: Abdomen: The liver has normal size and decreased density. No intrahepatic mass or biliary dilatation. No calcified gallstones. The spleen, pancreas, and adrenal glands are unremarkable. The kidneys have normal size and contour without evidence of solid mass or hydronephrosis. Aortoiliac atherosclerosis. IVC is unremarkable. The portal vein patent. The proximal visceral and renal arteries are patent. No free intraperitoneal air. The stomach and duodenum have normal course. Pelvis: Uterus is not enlarged. Urinary bladder is unremarkable. No free pelvic fluid or lymphadenopathy. Dilated loops of small bowel proceeding into the ventral hernia sac with decompressed loops of bowel exiting the hernia sac. Small amount of contrast identified in the decompressed small bowel loop. Fluid in the hernia sac which is increased from the previous study. Normal appendix. The visualized lung bases are clear. No destructive bone lesions identified. Degenerative change of the spine. IMPRESSION: 1. There has been interval herniation of a dilated loop of small bowel into the previously described ventral hernia. These findings are compatible with at least partial small bowel obstruction likely related to incarcerated ventral hernia. 2. Hepatic steatosis. Report called to Dr. Vann at [id number] on 03/28/2017 This exam was performed according to our departmental dose-optimization program, which includes automated exposure control, adjustment of the mA and/or kV according to patient size and/or use of iterative reconstruction technique.
[2017-03-28] MEDS ORDERED: ERTAPENEM SODIUM INJ 1 GM VIAL IV ONE (06:45)
[2017-03-28] MEDS ORDERED: BUPIVACAINE HCL 0.25 % INJ/PF (2.5 MG/1 ML) 30 ML VIAL ONE (07:41)
[2017-03-28] MEDS ORDERED: FENTANYL CITRATE INJ/PF 100 MCG/2 ML AMPUL ONE (08:02)
[2017-03-28] MEDS ORDERED: DEXMEDETOMIDINE INJ 80 MCG/20 ML VIAL IV ONE (08:03)
[2017-03-28] MEDS ORDERED: MIDAZOLAM 2 MG/2 ML INJ ONE (08:03)
[2017-03-28] MEDS ORDERED: PROPOFOL INJ 200 MG/20 ML VIAL IV ONE (08:03)
[2017-03-28] MEDS ORDERED: IBUPROFEN INJ 800 MG/8 ML VIAL IV ONE (08:03)
[2017-03-28] MEDS ORDERED: HYDROMORPHONE HCL INJ/PF 2 MG/ML AMPULE ONE (08:04)
--- NOTE | 2017-03-28 09:38 | HISTORY AND PHYSICAL E ---
History and Physical NAME: KATHLEEN HARDING : 1970 AGE: 46Y ADMITTED: 03/28/2017 ROOM: ED21 CHIEF COMPLAINT: Abdominal pain and nausea. HISTORY OF PRESENT ILLNESS: This is a 46-year-old female, who had her umbilical hernia repaired in [place] with the use of double mesh about 5 years ago. The patient claims that the hernia recurred and she was able to reduce it on her own. However, about 3 days ago, she had a recurrent incarcerated umbilical hernia, but she was not able to reduce it and started to have pain getting worse last night. She went to the ED and I was called by the ER PA and I attempted to reduce the recurrent umbilical/ventral hernia, but was not able to do so despite giving her a lot of pain medication. A CT scan of the abdomen was then performed, which showed partially incarcerated small bowel in the umbilical hernia. There is also another smaller hernia noted. PAST MEDICAL HISTORY: Cardiac medical history: Reports hyperlipidemia and hypertension. Pulmonary medical history: Reports asthma. Endocrine medical history: Reports diabetes mellitus type 2. Musculoskeletal medical history: Reports arthritis. Psychiatric medical history: Reports depression, anxiety. PAST SURGICAL HISTORY: Reports ventral/umbilical hernia repair with mesh 5 years in [place]. SOCIAL HISTORY: Smokes about 1/2 pack a day. Denies alcohol or recreational drug use. FAMILY HISTORY: Father of kidney failure and mother of [place]. Mother had diabetes mellitus. Children: Family history reviewed, no. Siblings: Family history reviewed, no. MEDICATIONS: 1. Abilify 20 mg p.o. daily. 2. Baclofen 20 mg p.o. q.6 hours p.r.n. 3. Cipro 500 mg b.i.d. for 14 tabs, given 01/10/2017. 4. Diazepam 10 mg p.o. q.12 hours p.r.n., given 01/10/2017. 5. Trulicity 1.5 mg subcutaneous at 10 p.m., given 01/10/2017. 6. Fenofibrate 145 mg p.o. daily. 7. Fluticasone propionate nasal spray, 2 sprays to both nares daily. 8. Furosemide 40 mg p.o. b.i.d. 9. Insulin Humalog 70 units subcutaneous with supper. 10. Insulin Humalog 75 units subcutaneous b.i.d. 11. Lisinopril 40 mg p.o. daily. 12. Amitiza 24 mcg p.o. b.i.d. p.r.n. 13. Metformin 1000 mg p.o. at bedtime. 14. Metformin 500 mg p.o. before breakfast. 15. Morphine sulfate 15 mg p.o. q.12 hours p.r.n., given 01/10/2017. 16. *------* 1 tab p.o. at bedtime. 17. Omeprazole 40 mg p.o. 18. Trileptal 300 mg p.o. q.12 hours. 19. Effexor 15 mg p.o. at bedtime. ALLERGIES: 1. BROPIRIMINE 2. CLOTRIMAZOLE. 3. PSEUDOEPHEDRINE. REVIEW OF SYSTEMS: CONSTITUTIONAL: Denies fever or night sweats. EYES/EARS: No vision or ear problems. NOSE/MOUTH/THROAT: No sore throat. CARDIOVASCULAR: Negative for chest pains. RESPIRATORY: Negative for shortness of breath. GASTROINTESTINAL: As per HPI with abdominal pain with nausea. GENITOURINARY: No dysuria. MUSCULOSKELETAL: Back pains. INTEGUMENTARY: No skin rash. NEUROLOGIC: No seizure disorder. PSYCHIATRIC: No suicidal ideation. ENDOCRINE: No polyuria, no polydipsia. HEMATOLOGIC/LYMPHATIC: No easy bruisability or lymphadenopathy. PHYSICAL EXAMINATION: VITAL SIGNS: Temperature 98.6 degrees Fahrenheit, pulse 96 per minute, respirations 20 per minute, blood pressure 143/76, pulse oximetry 96% on room air. Weight is 143.7 kilograms and her height is 5 feet 1 inch. GENERAL APPEARANCE: The patient is morbidly obese, in mild distress. HEENT: Head: Atraumatic. Eyes: Conjunctivae pink. Ears: Normal external ear exam. Mouth exam: Moist, tongue midline. NECK: No thyromegaly. RESPIRATORY: Clear to auscultation bilaterally. CARDIOVASCULAR: Regular rate and rhythm. Pulses present, normal radial pulses. VASCULAR: Normal capillary refill. ABDOMEN: Positive tender mass in the area of the umbilicus. Umbilicus has been removed. The rest of the abdomen is soft and nontender. An attempt done in the ER to reduce the hernia, but unable to do so despite pain medication. RECTAL: Exam deferred. EXTREMITIES: Full range of motion. MUSCULOSKELETAL: Patient is ambulatory. NEUROLOGIC: Alert, oriented to person, place, time and situation. PSYCHIATRIC: Appropriate affect. SKIN: Normal color and warmth. LABORATORY EXAM: White count 9.0, hemoglobin 14.7, hematocrit 43.9. Sodium 142.5, potassium 4.8, chloride 103, carbon dioxide 28, anion gap 12, BUN 28, creatinine 0.76, glucose 187, calcium 9.6, total bilirubin 12.5, AST 23, ALT 51, alkaline phosphatase 41, albumin 4.4, lipase 57.6. Lactic acid 1.7. Urine essentially normal except for urine glucose greater than 500. IMPRESSION: 1. INCARCERATED UMBILICAL HERNIA WITH PARTIAL SMALL BOWEL OBSTRUCTION. 2. MORBID OBESITY. 3. HYPERTENSION. 4. DIABETES MELLITUS TYPE 2. PLAN: 1. Patient did have a CT scan already and it showed incarcerated umbilical or ventral hernia with partial small bowel obstruction. Another smaller hernia lower to the umbilical site. 2. Keep the patient NPO, start IV fluids. 3. The patient was endorsed to Dr. Lucas, who will try to reduce the hernia repair the defect, laparoscopic versus open. DICTATING PHYSICIAN: LIZETH LAM M.D. [id number] PHY#: [id number] ID: [id number] JOB#: [id number] ACCT: [id number] cc:LIZETH LAM M.D. >
[2017-03-28] MEDS ORDERED: DEXTROSE 40% GEL 15 GM TUBE PO PRN ×2 (11:51)
[2017-03-28] MEDS ORDERED: GLUCAGON,HUMAN RECOMB 1 MG INJ IM PRN (11:51)
[2017-03-28] MEDS ORDERED: DEXTROSE 50%-WATER 25 GM/50 ML DISP.SYRIN IV PRN ×2 (11:51)
[2017-03-28] MEDS ORDERED: PROPOFOL 100 ML IV ONE ×2 (12:02→14:48)
--- NOTE | 2017-03-28 12:22 | Operative Report ---
Operative Report DATE OF SURGERY: 03/28/17 PREOPERATIVE DIAGNOSIS: 1. Incarcerated multiple abdominal wall hernias. 2. History of vocal herniorrhaphy with mesh. 3. Orbit obesity. 4. COPD. 5. Smoker POSTOPERATIVE DIAGNOSIS: same with incarcerated loop of small bowel; ischemic portion of omentum OPERATION: 1. Laparoscopic exploration, converted to open exploratory laparotomy. 2. Reduction of multiple renal wall-ventral hernias. 3. Partial omentectomy, treatment of hernia sac and abdominal wall mass. 4. Component separation of abdominal wall. 5. Retrorectus mesh placement using Covidien Paritex mesh and primary closure of fascia. 6. Range of subcutaneous space. 7. Extremely difficult modifier SURGEON: ARI VALERIO ANESTHESIA: GA TISSUE REMOVED OR ALTERED: Portions of necrotic omentum, hernia sac and mesh; all disposed of COMPLICATIONS: None ESTIMATED BLOOD LOSS: 200 cc INTRAOPERATIVE FINDINGS: See below PROCEDURE: Indication for procedure The patient is a 46-year-old morbidly obese white female with a history of COPD , smoking, previous abdominal wall hernia repair with mesh [place] approximately 5 years ago using an open approach. Patient presents to the emergency department with an acute onset of abdominal pain, and findings on physical exam consistent with incarcerated abdominal wall hernia. Attempts were made by Dr. Erwin to reduce the incarceration after sedation but were unsuccessful. Patient had a CT scan of the abdomen and pelvis with IV and oral contrast which suggested multiple abdominal wall hernias, with the largest including a loop of incarcerated small bowel. The patient was taken emergently to the operating room for laparoscopic, possible conversion to open surgery, repair of abdominal wall hernias. Because of the patient's morbid obesity including a BMI of 60, and total body mass of 145 kg, in addition to previous abdominal surgery with mesh in addition to COPD and smoking, this made for multiple comorbidities rendering this an extremely challenging patient, and challenging abdominal exam and subsequent surgery. The patient was taken to the operating room where she underwent general anesthesia using a glide scope for insertion of endotracheal tube. A Guerra catheter was inserted and clear yellow urine drained. Abdomen was exposed, prepped and draped in a sterile fashion and instrumentation set up for laparoscopic surgery. Surgical plan and surgical timeout were conducted. The findings were significant for morbidly obese patient with surgically absent umbilicus secondary to previous surgery executed via transverse abdominal wall incision. The patient had a massive panniculus. We approach the abdominal wall by making a stab wound in the left upper quadrant with a 15 blade and successfully inserting the Veress needle into the peritoneal cavity. Pneumoperitoneum was established, the Veress needle was removed, 5 mm conventional length port was inserted. Using a 5 mm viewing scope, 3 additional ports were placed one in the left lower quadrant one in the right mid field and one in the epigastric area all under direct visualization. 2 of these 3 ports were of the distended length. All ports were successfully without injury to bowel or vascular structures Findings were significant for a segment of omentum and small bowel incarcerated into the hernia. Because of the patient's anatomy, with the location of the hernias towards the pelvis, despite putting the patient in some degree of Trendelenburg, visualization manipulation of the intraperitoneal tissues was very difficult. We brought LigaSure onto the field and began taking down some of the incarcerated omentum. But the patient had difficulty being ventilated. We had high airway pressures and despite attempts to get patient relaxed, we felt that the laparoscopic access to the incarcerated tissue was impractical and a conversion to an open approach would be safest for the patient. All ports removed, and we converted to an open procedure. The abdomen was anesthetized with quarter percent Marcaine and approximately 12-14 cm incision was made over the incarcerated dominant hernia . Subcutaneous tissue was taken down with electrocautery. We got around the dominant incarcerated hernia which was most cephalad and revealed a large fluid containing mass about the size of a grapefruit. We aspirated clear serous fluid from the sac so I was confident this was with adjacent to the incarcerated small bowel. We opened up the sac and drain the fluid and were now looking directly at the incarcerated loop of small bowel. We took the level of dissection outside of the sac down to the fascia and opened up the fascia below this #1 hernia in midline. There are multiple sutures and absorbable mass, likely Marlex. Once this was achieved, we were able to manually reduce the incarcerated loop of small bowel. The bowel was injected but not ischemic. We now proceeded to clear sac from the intact fascia ; were multiple omental appendages 3 which were incarcerated and bordering on ischemia. They were Resected and pedicles tied off with 0 and 3-0 Vicryl suture. The knee large dominant hernia sac was now completely debrided, and cleaned to the intact surrounding fascia. We opened up the midline below the first hernia down into the second and even the third hernias, all towards the pelvis. They also contained incarcerated portions of omentum. All hernia sac elements were excised with cautery and disposed of. Now we had the abdominal wall fascia filleted open a length of approximately 15-18 cm. We Checked the proximal omentum and it was in good shape, and was allowed to retract into the peritoneal cavity. We reinspected the small bowel loop previously incarcerated and it pinked up and was viable and not in need of resection. SHe remained hemodynamically stable, and minimal bleeding from sac remnant and fascial edge controlled with cautery. At this point we evaluated the remaining abdominal wall anatomy. It consisted of reasonably intact but attenuated with rectus muscle on her right and left sides. We also ensured there were no residual hernias left. I decided to do a partial component separation by mobilizing the peritoneum completely off of the posterior rectus sheath. This was done in a circumferential fashion successfully elevating the posterior rectus sheath away from the retroperitoneum. We now took a moment to reinspect the viscera and it was in good shape and again the incarcerated loop of small bowel previously discussed was felt to be safe and left in situ. We now closed the retroperitoneum in a T fashion with 0 Vicryl suture. I now brought onto the field a Covidien Parietex mesh, unexpired, 20 x 15 cm and trimmed it by several centimeters in both directions. We now deployed the mesh with the appropriate side up, and the biodegradable side down, and secured it at the 12, 3, 6, and 9:00 positions using #1 PDS suture. The mesh was secured to the undersurface of the posterior rectus sheath by creating a retrorectus static repair. We tucked the corners in nicely and now proceeded to close the patient's [place] fascia including fragments of Marlex which were incorporated in the scar tissue. This was accomplished in a vertical fashion using 2 double-stranded #1 PDS sutures taking small bites of the fascia all in 1 purchase. We now placed a large Lonny drain over the close intact fascia in the subcutaneous space, secured the drain with a 2-0 Prolene suture, then closed the abdominal skin with 3-0 Vicryl, brenton. Previous laparoscopy port sites were closed with brenton. Abdominal dressings applied and abdominal binder applied. Patient tolerated the procedure well, left intubated and taken to the intensive care unit in guarded condition. Approximate time for execution of this operation was 2-1/2 hours... due to extreme difficulty due to patient's morbid obesity, scar tissue, explantation previously placed Marlex mesh
[2017-03-28] MEDS ORDERED: SUCCINYLCHOLINE CHLORIDE INJ 200 MG/10 ML VIAL ONE (12:58)
[2017-03-28] MEDS ORDERED: DEXAMETHASONE SOD PHOSPHATE INJ 4 MG/1 ML VIAL ONE (12:58)
[2017-03-28] MEDS ORDERED: ONDANSETRON HCL INJ/PF 4 MG/2 ML SDV ONE (12:58)
[2017-03-28] MEDS ORDERED: LIDOCAINE 2% INJ-PF (20 MG/ML) 2 ML AMPUL ONE (12:58)
[2017-03-28] MEDS ORDERED: VECURONIUM BROMIDE INJ 10 MG VIAL IV ONE (12:58)
[2017-03-28] MEDS ORDERED: ROCURONIUM BROMIDE INJ 50 MG/5 ML VIAL IV ONE (12:58)
[2017-03-28] MEDS: NORMAL SALINE 1000 ML 1,000 ML IV PRN ×2 (14:10→18:32)
[2017-03-28] MEDS: INSULIN REG, HUMAN 100 UNIT/ML 3 ML VIAL (PYX) SUBCUT PRN (14:11)
[2017-03-28] MEDS ORDERED: PROPOFOL 100 ML IV PRN (15:03)
--- NOTE | 2017-03-28 15:46 | EKG REPORT ---
SEVERITY:- NORMAL ECG - SINUS RHYTHM : Confirmed by: Steve Felix 28-Mar-2017 15:46:08
[2017-03-28] MEDS ORDERED: INFLUENZA ADLT QUAD (36MOS+) 2017-18 VAC 0.5 ML SYR IM PRN (15:54)
[2017-03-28] MEDS ORDERED: BACLOFEN 20 MG TABLET PO PRN (20:57)
[2017-03-28] MEDS: METFORMIN HCL 500 MG TABLET PO SCH (21:15)
[2017-03-28] MEDS: KETOROLAC TROMETHAMINE INJ/PF 30 MG/1 ML SDV IV SCH (21:20)
[2017-03-28] MEDS: OXCARBAZEPINE 150 MG TABLET PO SCH (21:21)
[2017-03-28] MEDS: ATORVASTATIN CALCIUM 20 MG TABLET PO SCH (21:21)
[2017-03-29] MEDS: KETOROLAC TROMETHAMINE INJ/PF 30 MG/1 ML SDV IV SCH ×4 (02:07→21:22)
[2017-03-29] MEDS: NORMAL SALINE 1000 ML 1,000 ML IV PRN (02:08)
[2017-03-29] MEDS: LANSOPRAZOLE 30 MG TAB.RAP.DR PO SCH (06:12)
[2017-03-29] MEDS: METFORMIN HCL 500 MG TABLET PO SCH ×2 (08:34→21:22)
[2017-03-29] MEDS: FLUTICASONE NASAL SPRAY 50 MCG/SPRY 120 SPRAY/16 GM NAREB SCH (09:54)
[2017-03-29] MEDS: FENOFIBRATE NANOCRYSTALLIZED 145 MG TABLET PO SCH (09:54)
[2017-03-29] MEDS: ARIPIPRAZOLE 5 MG TABLET PO SCH (09:54)
[2017-03-29] MEDS: OXCARBAZEPINE 150 MG TABLET PO SCH ×2 (09:54→21:22)
[2017-03-29] MEDS: VENLAFAXINE HCL 25 MG TABLET PO SCH (09:55)
[2017-03-29] MEDS ORDERED: (PENDING PHARMACY ID) (Dulaglutide [Trulicity] 1.5 MG) SQ SCH (10:00)
--- NOTE | 2017-03-29 10:56 | PDOC PROGRESS REPORT ---
Subjective Progress Note for:: 03/29/17 Subjective:: Pain is controlled; patient remains in the intensive care unit; she has been out of bed to the chair several times; voiding after Guerra catheter removed. Pulmonary toilet reasonably good. No nausea or vomiting Physical Exam Vital Signs: Temp Pulse Resp BP Pulse Ox 98.2 F 98 14 118/71 95 03/29/17 06:00 03/29/17 08:00 03/29/17 10:00 03/29/17 08:02 03/29/17 10:00 Intake & Output 03/28/17 03/29/17 03/30/17 06:59 06:59 06:59 Intake Total 5231 Output Total 3840 Balance 1391 Weight 146.2 kg General appearance: PRESENT: no acute distress GI/Abdominal exam: PRESENT: other - Binder is removed; serous sanguinous drainage in Lonny drain receptacles; brenton intact. Results Impressions: Abdomen/Pelvis CT 03/28/17 00:00 IMPRESSION: 1. There has been interval herniation of a dilated loop of small bowel into the previously described ventral hernia. These findings are compatible with at least partial small bowel obstruction likely related to incarcerated ventral hernia. 2. Hepatic steatosis. Report called to Dr. Vann at 0535 on 03/28/2017 This exam was performed according to our departmental dose-optimization program, which includes automated exposure control, adjustment of the mA and/or kV according to patient size and/or use of iterative reconstruction technique. Assessment & Plan - Diagnosis (1) Incarcerated ventral hernia Is this a current diagnosis for this admission?: Yes Plan: She was 1 day status post laparoscopic conversion to open ventral hernia repair with retro-rectus mesh placement and drain in the subcutaneous space, tolerated extubation very well considering her morbid obesity, COPD, chronic smoking. Voiding with Guerra out, transferring from bed to chair. Plan: 1. Floor 2. Start clear liquids 3. Anticipate subcu drain removal tomorrow, possible discharge home.
[2017-03-29] MEDS: INSULIN REG, HUMAN 100 UNIT/ML 3 ML VIAL (PYX) SUBCUT PRN ×2 (12:49→18:51)
[2017-03-29] MEDS ORDERED: ATORVASTATIN CALCIUM 20 MG TABLET ONE (21:54)
[2017-03-29] MEDS: ATORVASTATIN CALCIUM 20 MG TABLET PO SCH (22:26)
[2017-03-30] MEDS: INSULIN REG, HUMAN 100 UNIT/ML 3 ML VIAL (PYX) SUBCUT PRN ×3 (00:14→23:55)
[2017-03-30] MEDS: KETOROLAC TROMETHAMINE INJ/PF 30 MG/1 ML SDV IV SCH ×3 (03:05→15:51)
[2017-03-30] MEDS: LANSOPRAZOLE 30 MG TAB.RAP.DR PO SCH (05:10)
[2017-03-30] MEDS: METFORMIN HCL 500 MG TABLET PO SCH ×2 (08:29→21:44)
[2017-03-30] MEDS: OXCARBAZEPINE 150 MG TABLET PO SCH ×2 (11:09→21:44)
[2017-03-30] MEDS: VENLAFAXINE HCL 25 MG TABLET PO SCH (11:09)
[2017-03-30] MEDS: FLUTICASONE NASAL SPRAY 50 MCG/SPRY 120 SPRAY/16 GM NAREB SCH (11:09)
[2017-03-30] MEDS: FENOFIBRATE NANOCRYSTALLIZED 145 MG TABLET PO SCH (11:09)
[2017-03-30] MEDS: ARIPIPRAZOLE 5 MG TABLET PO SCH (11:09)
--- NOTE | 2017-03-30 17:38 | PDOC DISCHARGE SUMMARY ---
General - Admit/Disc Date/PCP Admission Date/Primary Care Provider: 03/28/17 07:58 Discharge Date: 03/31/17 - Discharge Diagnosis (1) Incarcerated ventral hernia Is this a current diagnosis for this admission?: Yes (2) Abdominal pain Is this a current diagnosis for this admission?: Yes (3) Partial small bowel obstruction Is this a current diagnosis for this admission?: Yes - Additional Information Resuscitation Status: Full Code Discharge Diet: Regular Discharge Activity: No Lifting Over 10 Pounds, No Lifting/Push/Pulling, No tub bath Home Medications: Aripiprazole [Abilify] 20 mg PO DAILY 03/28/17 Baclofen [Baclofen 20 mg Tablet] 20 mg PO Q6HP PRN 03/28/17 Diazepam [Valium 2 mg Tablet] 2 mg PO Q12HP PRN 03/28/17 Dulaglutide [Trulicity] 1.5 mg SQ TRUONG@1000 03/28/17 Fenofibrate Nanocrystallized [Tricor 145 mg Tablet] 145 mg PO DAILY 03/28/17 Fluticasone Propionate [Flonase Allergy Relief] 2 spray NASL DAILY 03/28/17 Furosemide [Lasix 40 mg Tablet] 40 mg PO Q12HP PRN 03/28/17 Insulin Regular, Human [Humulin R U-500 Kwikpen] 75 units SQ . DAILY WITH SUPPER 03/28/17 Insulin Regular, Human [Humulin R U-500 Kwikpen] 80 unit SQ .DAILY AT BREAKFAST 03/28/17 Insulin Regular, Human [Humulin R U-500 Kwikpen] 80 units SQ .DAILY WITH LUNCH 03/28/17 Linaclotide [Linzess] 290 mcg PO DAILY 03/28/17 Metformin HCl [Metformin HCl ER] 1,000 mg PO QHS 03/28/17 Metformin HCl [Metformin HCl ER] 500 mg PO ACBRKFST 03/28/17 Omeprazole 40 mg PO ACBRKFST 03/28/17 Oxcarbazepine [Trileptal] 300 mg PO Q12 03/28/17 Oxycodone HCl [Oxycodone HCl ER] 10 mg PO Q12 03/28/17 Rosuvastatin Calcium [Crestor 10 mg Tablet] 10 mg PO QHS 03/28/17 Venlafaxine HCl [Effexor] 100 mg PO DAILY 03/28/17 History of Present Illness History of Present Illness: KATHLEEN HARDING is a 46 year old female Hospital Course Hospital Course: This is a morbidly obese female (weight 146.2 kg, height 5 ft 1 in , BMI 60.9 kg /m2), who was admitted 2 days ago with incarcerated ventral hernias. she has had a history of previous hernia repair with mesh. She had an attempted laparoscopic converted to open ventral hernia repair with retrorectal placement of the Parietex mesh. She has done well postoperatively. A GERONIMO drain placed at surgery was removed on postop day 2. She is tolerating a regular diet, is ambulant. She will follow up in the surgical outpatient in 2 weeks. Physical Exam Vital Signs: Temp Pulse Resp BP Pulse Ox 99.0 F 78 18 131/80 H 99 03/30/17 15:14 03/30/17 15:14 03/30/17 15:14 03/30/17 15:14 03/30/17 15:14 Intake & Output 03/29/17 03/30/17 03/31/17 06:59 06:59 06:59 Intake Total 5231 540 400 Output Total 3840 476 140 Balance 1391 64 260 Weight 146.2 kg General appearance: PRESENT: no acute distress, morbidly obese Head exam: PRESENT: atraumatic, normocephalic Eye exam: PRESENT: conjunctiva pink Ear exam: PRESENT: normal external ear exam Mouth exam: PRESENT: moist Neck exam: PRESENT: full ROM Respiratory exam: PRESENT: clear to auscultation barry Cardiovascular exam: PRESENT: RRR, +S1, +S2 GI/Abdominal exam: PRESENT: other - Abdomen is obese with grade 4 hanging pannus ; abdominal incisions are clean, dry and intact; GERONIMO drain with 5ml of serosanguinous drainage. Abdomen is soft, nontender. Neurological exam: PRESENT: alert, oriented to person, oriented to place, oriented to time, CN II-XII grossly intact Psychiatric exam: PRESENT: normal mood Results Impressions: Abdomen/Pelvis CT 03/28/17 00:00 IMPRESSION: 1. There has been interval herniation of a dilated loop of small bowel into the previously described ventral hernia. These findings are compatible with at least partial small bowel obstruction likely related to incarcerated ventral hernia. 2. Hepatic steatosis. Report called to Dr. Vann at 0535 on 03/28/2017 This exam was performed according to our departmental dose-optimization program, which includes automated exposure control, adjustment of the mA and/or kV according to patient size and/or use of iterative reconstruction technique. Plan Time Spent: Less than 30 Minutes - in removing the GERONIMO drain and discharge planning.
[2017-03-30] MEDS: ATORVASTATIN CALCIUM 20 MG TABLET PO SCH (21:44)
[2017-03-31] MEDS: KETOROLAC TROMETHAMINE INJ/PF 30 MG/1 ML SDV IV PRN ×2 (01:26→09:52)
[2017-03-31] MEDS: LANSOPRAZOLE 30 MG TAB.RAP.DR PO SCH (06:13)
[2017-03-31] MEDS: METFORMIN HCL 500 MG TABLET PO SCH (08:40)
[2017-03-31 09:32] VITALS: BP 132/80
[2017-03-31] MEDS: VENLAFAXINE HCL 25 MG TABLET PO SCH ×2 (09:58→10:08)
[2017-03-31] MEDS: FLUTICASONE NASAL SPRAY 50 MCG/SPRY 120 SPRAY/16 GM NAREB SCH (09:58)
[2017-03-31] MEDS: ARIPIPRAZOLE 5 MG TABLET PO SCH (10:00)
[2017-03-31] MEDS: OXCARBAZEPINE 150 MG TABLET PO SCH (10:04)
[2017-03-31] MEDS: FENOFIBRATE NANOCRYSTALLIZED 145 MG TABLET PO SCH (10:04)
== END 2017-03-31 10:10 | disposition home or self-care (01) | DRG 354 ==
LOC: ER 23:43 → EH 03-28 07:58 → ICU 03-28 11:56 → 2N 03-29 17:50
PROVIDERS: ATTEND Surgery
PROC: 0DBU0ZZ Excision of Omentum, Open Approach (ICD-10-PCS; 2017-03-28)
PROC: 0WUF0JZ Supplement Abdominal Wall with Synthetic Substitute, Open Approach (ICD-10-PCS; principal; 2017-03-28 08:30)
DX: K43.0 Incisional hernia with obstruction, without gangrene (principal); Z68.43 Body mass index [BMI] 50.0-59.9, adult; E66.01 Morbid (severe) obesity due to excess calories; Z53.31 Laparoscopic surgical procedure converted to open procedure; E78.5 Hyperlipidemia, unspecified; I10 Essential (primary) hypertension; E11.9 Type 2 diabetes mellitus without complications; J45.909 Unspecified asthma, uncomplicated; M19.90 Unspecified osteoarthritis, unspecified site; F41.9 Anxiety disorder, unspecified; F32.9 Major depressive disorder, single episode, unspecified; Z79.899 Other long term (current) drug therapy; F17.210 Nicotine dependence, cigarettes, uncomplicated; Z79.4 Long term (current) use of insulin; Z88.8 Allergy status to other drugs, medicaments and biological substances
CPT/HCPCS: 36415; 74177; 80053; 81001; 81025; 82962; 83605; 83690; 840; 85025; 93005; 93010; 94002; 94799; 96361; 96374; 96375; 96376; 99285; C1781; J0330; J1100; J1170; J1335; J1741; J1815; J1885; J2250; J2405; J2704; J3010; J3490; J7030

== ENCOUNTER 2017-05-25 11:37 | Observation (INO) | payer MEDICARE, MEDICAID ==
[2017-05-25] MEDS ORDERED: NORMAL SALINE 1000 ML 1,000 ML IV ONE ×2 (13:34→14:10)
--- NOTE | 2017-05-25 13:47 | ER Document Report ---
ED Skin Rash/Insect Bite/Abscs - General Chief Complaint: Cyst Stated Complaint: UNDER ARM PAIN Time Seen by Provider: 05/25/17 13:19 Mode of Arrival: Ambulatory Information source: Patient Notes: 46-year-old female presents to ED for complaint of cyst times a week to the right buttocks and under her left arm. She states that the areas have been quite increased in pain and pressure over the last week. She states is very hard to sit at this time or to walk due to the pain. This patient has a history of diabetes blood pressure cholesterol MRSA ulcers arthritis depression and ventral hernia repairs. TRAVEL OUTSIDE OF THE [place] IN LAST 30 DAYS: No - HPI Patient complains to provider of: Skin rash/lesion Onset: Last week Onset/Duration: Gradual, Worse Quality of pain: Sharp, Throbbing Severity: Moderate Pain Level: 4 Skin Character: Abscess Quality of rash: Painful Identify cause: No Exacerbated by: Sitting, Movement, Walking Relieved by: Denies Similar symptoms previously: No Recently seen / treated by doctor: No - Related Data Allergies/Adverse Reactions: brompheniramine [From Lodrane D] Allergy (Verified 02/02/17 10:31) clotrimazole [From Mycelex] Allergy (Verified 02/02/17 10:31) pseudoephedrine [From Lodrane D] Allergy (Verified 02/02/17 10:31) Home Medications: Current Home Medications Aripiprazole [Abilify] 20 mg PO DAILY 05/25/17 [History] Baclofen [Baclofen 20 Mg Tablet] 20 mg PO QIDP PRN 05/25/17 [History] Diazepam [Valium 2 mg Tablet] 2 mg PO Q12HP PRN 05/25/17 [History] Diclofenac Potassium 50 mg PO TID 05/25/17 [History] Fenofibrate Nanocrystallized [Tricor 145 mg Tablet] 145 mg PO DAILY 05/25/17 [ History] Fluticasone Propionate [Flonase Nasal [place] 50 Mcg/[place]ax[place] 16 gm] 2 sprays NASL DAILY 05/25/17 [History] Furosemide [Lasix] 40 mg PO BID 05/25/17 [History] Insulin Regular, Human [Humulin R U-500 Kwikpen] 75 unit SQ ACSUPPER 05/25/17 [ History] Insulin Regular, Human [Humulin R U-500 Kwikpen] 80 unit SQ ACBRKFST 05/25/17 [ History] Insulin Regular, Human [Humulin R U-500 Kwikpen] 80 units SQ ACLUNCH 05/25/17 [ History] Linaclotide [Linzess] 290 mcg PO DAILYP PRN 05/25/17 [History] Lisinopril [Prinivil 40 mg Tablet] 40 mg PO DAILY 05/25/17 [History] Lubiprostone [Amitiza 24 Mcg Capsule] 24 mcg PO BIDP PRN 05/25/17 [History] Metformin HCl [Glucophage XR 500 mg Tablet] 1,000 mg PO QHS 05/25/17 [History] Metformin HCl [Glucophage XR 500 mg Tablet] 500 mg PO ACBRKFST 05/25/17 [History ] Omeprazole 40 mg PO ACBRKFST 05/25/17 [History] Oxcarbazepine [Trileptal] 300 mg PO Q12HP PRN 05/25/17 [History] Oxycodone HCl [Oxycontin Sr 10 mg Tablet] 10 mg PO Q12 05/25/17 [History] Oxycodone HCl/Acetaminophen [Oxycodone-Acetaminophen 10-325] 1 each PO BIDP PRN 05/25/17 [History] Pregabalin [Lyrica] 300 mg PO Q12 05/25/17 [History] Rosuvastatin Calcium [Crestor] 10 mg PO QHS 05/25/17 [History] Venlafaxine HCl [Effexor] 100 mg PO DAILY 05/25/17 [History] Past Medical History - General Information source: Patient - Social History Smoking Status: Current Every Day Smoker Cigarette use (# per day): Yes - 1/2 Chew tobacco use (# tins/day): No Smoking Education Provided: Yes - 4min Frequency of alcohol use: Rare Drug Abuse: None Occupation: no Lives with: Alone Family History: Arthritis, CAD, CVA, DM, Hyperlipidemia, Hypertension, Malignancy, Thyroid Disfunction. denies: COPD Patient has suicidal ideation: No Patient has homicidal ideation: No - Past Medical History Cardiac Medical History: Reports: Hx Hypercholesterolemia, Hx Hypertension Pulmonary Medical History: Reports: Hx Asthma EENT Medical History: Reports: None Neurological Medical History: Reports: None Endocrine Medical History: Reports: Hx Diabetes Mellitus Type 2 Renal/ Medical History: Reports: None Malignancy Medical History: Reports: None GI Medical History: Reports: Hx Ulcer Musculoskeltal Medical History: Reports Hx Arthritis Skin Medical History: Reports Hx MRSA Psychiatric Medical History: Reports: Hx Depression - anxiety Traumatic Medical History: Reports: None Infectious Medical History: Reports: Hx MRSA Past Surgical History: Reports: Other - Ventral/umbilical hernia repair with mesh 5 years ago in [place] - Immunizations Immunizations up to date: Yes Physical Exam - Vital signs Vitals: Temp Pulse Resp BP Pulse Ox 98.0 F 80 14 117/63 96 05/25/17 11:47 05/25/17 11:47 05/25/17 11:47 05/25/17 11:47 05/25/17 11:47 Interpretation: Normal - General General appearance: Appears well, Alert - HEENT Head: Normocephalic, Atraumatic Eyes: Normal Pupils: PERRL - Respiratory Respiratory status: No respiratory distress Chest status: Nontender Breath sounds: Normal Chest palpation: Normal - Cardiovascular Rhythm: Regular Heart sounds: Normal auscultation Murmur: No - Abdominal Inspection: Normal Distension: No distension Bowel sounds: Normal Tenderness: Nontender Organomegaly: No organomegaly - Back Back: Normal, Nontender - Extremities General upper extremity: Normal inspection, Nontender, Normal color, Normal ROM , Normal temperature General lower extremity: Normal inspection, Nontender, Normal color, Normal ROM , Normal temperature, Normal weight bearing. No: Judith's sign - Neurological Neuro grossly intact: Yes Cognition: Normal Orientation: AAOx4 Christian Coma Scale Eye Opening: Spontaneous [place] Coma Scale Verbal: Oriented [place] Coma Scale Motor: Obeys Commands Christian Coma Scale Total: 15 Speech: Normal Motor strength normal: LUE, RUE, LLE, RLE Sensory: Normal - Psychological Associated symptoms: Normal affect, Normal mood - Skin Skin Temperature: Warm Skin Moisture: Dry Skin Color: Normal Course - Re-evaluation Re-evalutation: 05/25/17 13:37 Due to the size of the abscesses to her right buttocks and left axilla I have called the surgeon Dr. Erwin who has agreed to come and see the patient He requested CBC chemistry urine chest x-ray and EKG and a saline bolus. These have been ordered - Vital Signs Vital signs: Temp Pulse Resp BP Pulse Ox 98.6 F 96 16 118/75 97 05/25/17 18:43 05/25/17 18:43 05/25/17 18:43 05/25/17 18:43 05/25/17 18:43 - Laboratory Result Diagrams: 05/25/17 14:52 05/25/17 14:52 Laboratory results interpreted by me: 05/25/17 13:50 Urine Urobilinogen 2.0 H Ur Leukocyte Esterase SMALL H Discharge - Discharge Clinical Impression: Abscess of right buttock, Abscess of left axilla Condition: Stable Disposition: ADMITTED OBSERVATION Admitting Provider: Surgicalist - [facility] Unit Admitted: Surgical Floor
[2017-05-25] MEDS ORDERED: CLINDAMYCIN 900 MG/D5W RTU 50 ML IV ONE ×2 (14:10→21:15)
[2017-05-25 14:13] LABS: AMORPHOUS SEDIMENT,URINE TRACE /HPF; APPEARANCE,URINE SLIGHTLY-CLOUDY; BILIRUBIN,URINE NEGATIVE (NEGATIVE); COLOR,URINE YELLOW; GLUCOSE, URINE NEGATIVE (NEGATIVE); KETONES,URINE NEGATIVE (NEGATIVE); LEUKOCYTE ESTERASE,URINE SMALL (NEGATIVE); NITRITE,URINE NEGATIVE (NEGATIVE); PROTEIN,URINE NEGATIVE (NEGATIVE); URINE SPECIFIC GRAVITY 1.023
--- NOTE | 2017-05-25 14:38 | HISTORY AND PHYSICAL E ---
History and Physical NAME: KATHLEEN HARDING : 1970 AGE: 46Y ADMITTED: 05/25/2017 ROOM: CHIEF COMPLAINT: Right perineal and left axillary pains. HISTORY OF PRESENT ILLNESS: This is a 46-year-old female complaining of pains along the right perineal area and left axillary area for about a week. She came to the ED where an abscess of the right perineal and left axillary areas were noted. PAST HISTORY: History of diabetes mellitus on metformin and Humulin. SURGICAL HISTORY: History of abdominal wall hernias done 5 years ago and another one in March by Dr. Lucas. He is asymptomatic from these surgeries. SOCIAL HISTORY: Smokes about half a pack a day. Denies alcohol or drug use. FAMILY HISTORY: Father of renal failure and mother of [place]. ALLERGIES: None known. PHYSICAL EXAMINATION: GENERAL: Well-developed, morbidly obese 46-year-old female alert and oriented, complaining of right perineal and left axillary pain. NECK: Supple. No thyromegaly. LUNGS: Clear. HEART: Regular sinus rhythm. ABDOMEN: Soft, nontender. The previous operative scar with the top part just starting to heal. She has a left axillary mass that is red and tender roughly measuring about 5 cm in diameter. PERINEAL AREA: There is obvious swelling along the right perineal area roughly about 5 cm in diameter that is tender and red. EXTREMITIES: No edema. IMPRESSION: Abscess of the right perineal area and 2 left axillary areas. PLAN: Patient for hydration, IV antibiotics, and to be scheduled for incision and drainage of right perineal and left axillary areas. DICTATING PHYSICIAN: LIZETH LAM M.D. [id number] PHY#: [id number] ID: [id number] JOB#: [id number] ACCT: [id number] cc:Niranjan SWAIN MD, M.D >
[2017-05-25 15:14] LABS: ABSOLUTE EOSINOPHILS # (AUTO) 0.2 10^3/uL (0.0-0.6); ABSOLUTE MONOCYTES (AUTO) 0.8 10^3/uL (0.1-1.4); ABSOLUTE NEUT (AUTO) 7.7 10^3/uL (1.7-8.2); BASOPHILS % (AUTO) 0.4 % (0-2); EOSINOPHILS % (AUTO) 1.5 % (0-6); HEMATOCRIT 36.5 % (36.0-47.0); HEMOGLOBIN 12.1 g/dL (12.0-15.5); LYMPHOCYTES % (AUTO) 18.7 % (13-45); MEAN CORPUSCULAR HEMOGLOBIN 27.1 pg (27.0-33.4); MEAN CORPUSCULAR HGB CONC 33.2 g/dL (32.0-36.0); MEAN CORPUSCULAR VOLUME 82 fl (80-97); MONOCYTES % (AUTO) 7.2 % (3-13); PLATELET COUNT 204 10^3/uL (150-450); RED BLOOD COUNT 4.47 10^6/uL (3.72-5.28); RED CELL DISTRIBUTION WIDTH 15.4 % (11.5-14.0); SEGMENTED NEUTROPHILS % (AUTO) 72.2 % (42-78); TOTAL CELLS COUNTED % (AUTO) 100 %; WHITE BLOOD COUNT 10.7 10^3/uL (4.0-10.5)
[2017-05-25 15:22] LABS: ALANINE AMINOTRANSFERASE 33 U/L (9-52); ALBUMIN 3.7 g/dL (3.5-5.0); ALKALINE PHOSPHATASE 42 U/L (38-126); ANION GAP 11 (5-19); ASPARTATE AMINO TRANSFERASE 20 U/L (14-36); BILIRUBIN,DIRECT 0.3 mg/dL (0.0-0.4); BILIRUBIN,TOTAL 0.4 mg/dL (0.2-1.3); BLOOD UREA NITROGEN 19 mg/dL (7-20); CALCIUM 9.4 mg/dL (8.4-10.2); CARBON DIOXIDE 28 mmol/L (22-30); CHLORIDE 103 mmol/L (98-107); GLUCOSE 56 mg/dL (75-110); POTASSIUM 3.9 mmol/L (3.6-5.0); SODIUM 142.1 mmol/L (137-145); TOTAL PROTEIN 6.3 g/dL (6.3-8.2)
--- NOTE | 2017-05-25 16:02 | RADIOLOGY REPORT (SQ) ---
EXAM DESCRIPTION: CHEST PA/LAT COMPLETED DATE/TIME: 05/25/2017 3:46 pm REASON FOR STUDY: pre op COMPARISON: None. EXAM PARAMETERS: NUMBER OF VIEWS: two views TECHNIQUE: Digital Frontal and Lateral radiographic views of the chest acquired. RADIATION DOSE: NA LIMITATIONS: none FINDINGS: LUNGS AND PLEURA: No opacities, masses or pneumothorax. No pleural effusion. MEDIASTINUM AND HILAR STRUCTURES: No masses or contour abnormalities. HEART AND VASCULAR STRUCTURES: Heart normal size. No evidence for failure. BONES: No acute findings. HARDWARE: None in the chest. OTHER: No other significant finding. IMPRESSION: NO ACUTE RADIOGRAPHIC FINDING IN THE CHEST. TECHNICAL DOCUMENTATION: JOB ID: [id number]- All Rights Reserved
--- NOTE | 2017-05-25 17:25 | EKG REPORT ---
SEVERITY:- NORMAL ECG - SINUS RHYTHM : Confirmed by: Steve Felix 25-May-2017 17:25:06
[2017-05-25] MEDS ORDERED: MORPHINE SULFATE 10 MG/ML INJ IV PRN ×3 (20:30→23:08)
[2017-05-25] MEDS ORDERED: LIDOCAINE 1% INJ-PF (10 MG/ML) 30 ML SDV ONE (21:28)
[2017-05-25] MEDS ORDERED: BUPIVACAINE HCL 0.25 % INJ/PF (2.5 MG/1 ML) 30 ML VIAL ONE (21:28)
[2017-05-25] MEDS ORDERED: KETAMINE HCL INJ 500 MG/10 ML VIAL ONE (21:29)
[2017-05-25] MEDS ORDERED: FENTANYL CITRATE INJ/PF 100 MCG/2 ML AMPUL ONE ×2 (21:30)
[2017-05-25] MEDS ORDERED: MIDAZOLAM 2 MG/2 ML INJ ONE (21:30)
[2017-05-25] MEDS ORDERED: PROPOFOL INJ 200 MG/20 ML VIAL IV ONE (21:30)
[2017-05-25] MEDS ORDERED: ONDANSETRON HCL INJ/PF 4 MG/2 ML SDV ONE (21:31)
[2017-05-25] MEDS ORDERED: KETOROLAC TROMETHAMINE 60 MG/2 ML SDV ONE (21:31)
[2017-05-25] MEDS ORDERED: PROMETHAZINE HCL INJ 25 MG/1 ML VIAL IV PRN ×2 (22:12)
[2017-05-25] MEDS ORDERED: FENTANYL CITRATE INJ/PF 100 MCG/2 ML AMPUL IV PRN ×3 (22:12)
[2017-05-25] MEDS ORDERED: DIPHENHYDRAMINE HCL 50 MG/ML VIAL IV PRN (22:12)
[2017-05-25] MEDS ORDERED: OXYCODONE-ACETAMINOPHEN 5-325 MG TABLET PO PRN ×2 (22:12)
[2017-05-25] MEDS ORDERED: MEPERIDINE HCL/PF INJ 25 MG/1 ML DISP.SYRIN IV PRN (22:12)
[2017-05-26] MEDS ORDERED: (PENDING PHARMACY ID) (Oxcarbazepine [Trileptal] 300 MG) PO PRN (00:01)
[2017-05-26] MEDS ORDERED: BACLOFEN 20 MG TABLET PO PRN (00:01)
[2017-05-26] MEDS: CLINDAMYCIN 900 MG/D5W RTU 50 ML IV SCH ×2 (02:30→08:16)
[2017-05-26] MEDS: NORMAL SALINE 1000 ML 1,000 ML IV PRN ×2 (02:31→11:19)
[2017-05-26] MEDS: OXYCODONE-ACETAMINOPHEN 5-325 MG TABLET PO PRN ×2 (04:37→08:37)
[2017-05-26] MEDS ORDERED: LANSOPRAZOLE 30 MG TAB.RAP.DR PO SCH (06:00)
[2017-05-26] MEDS ORDERED: DEXTROSE 40% GEL 15 GM TUBE X 2 PO PRN (07:57)
[2017-05-26] MEDS ORDERED: GLUCAGON,HUMAN RECOMB 1 MG INJ IM PRN (07:57)
[2017-05-26] MEDS ORDERED: INSULIN REG, HUMAN 100 UNIT/ML 3 ML VIAL (PYX) SUBCUT PRN (07:57)
[2017-05-26] MEDS ORDERED: DEXTROSE 40% GEL 15 GM TUBE PO PRN (07:57)
[2017-05-26] MEDS ORDERED: DEXTROSE 50%-WATER SYRINGE 25 GM/50 ML DOSE IV PRN (07:57)
[2017-05-26] MEDS ORDERED: DEXTROSE 50%-WATER SYRINGE 12.5 GM/25 ML DOSE IV PRN (07:57)
[2017-05-26] MEDS ORDERED: INSULIN REGULAR HUMAN 80 UNIT SQ SCH ×2 (08:00→11:00)
[2017-05-26] MEDS ORDERED: METFORMIN HCL 500 MG TABLET PO SCH (08:00)
[2017-05-26] MEDS ORDERED: (PENDING PHARMACY ID) (Metformin Hcl [Glucophage Xr 500 Mg Tablet] 500 MG) PO SCH (08:00)
[2017-05-26] MEDS ORDERED: INSULIN REG, HUMAN 100 UNIT/ML 3 ML VIAL (PYX) SUBCUT SCH ×3 (08:00→16:00)
[2017-05-26] MEDS ORDERED: OXCARBAZEPINE 150 MG TABLET PO PRN (08:05)
--- NOTE | 2017-05-26 09:40 | Physician Advisory Note ---
Physician Advisor ProgressNote .: Pursuant to the plan for Jose Juan Burnett, I have reviewed the medical record for this patient. Physician Advisor Statement: Nice documentation of pts morbid obesity (BMI 61) - please continue to document this, along with her DM type 2, in problem list each day. Status: Medicare pt appropriately brought in 05/25 as Outpt Obs. I&D done 05/26 AM. If, on 05/26 PM, attending finds pt is not sufficiently improved for safe d/c, but needs at least a 2nd MN of hospital care, please document clinical reasons/ concerns, & may change to Inpatient status. Ex: "perineal abscess not sufficiently improved for safe d/c yet", "I AM CONCERNED about ", ... Thanks! CK
[2017-05-26] MEDS ORDERED: FENOFIBRATE NANOCRYSTALLIZED 145 MG TABLET PO SCH (10:00)
[2017-05-26] MEDS ORDERED: PREGABALIN 75 MG CAPSULE PO SCH (10:00)
[2017-05-26] MEDS ORDERED: LISINOPRIL 10 MG TABLET PO SCH (10:00)
[2017-05-26] MEDS ORDERED: FLUTICASONE NASAL SPRAY 50 MCG/SPRY 120 SPRAY/16 GM NASL SCH (10:00)
[2017-05-26] MEDS ORDERED: ARIPIPRAZOLE 5 MG TABLET PO SCH (10:00)
[2017-05-26] MEDS ORDERED: OXYCODONE HCL SR 10 MG TABLET PO SCH (10:00)
[2017-05-26] MEDS ORDERED: VENLAFAXINE HCL 25 MG TABLET PO SCH (10:00)
[2017-05-26 13:24] VITALS: BP 127/78
--- NOTE | 2017-05-26 15:53 | OPERATIVE REPORT E ---
Operative Report NAME: KATHLEEN HARDING : 1970 AGE: 46Y DATE OF SURGERY: 05/25/2017 ROOM: 218 PREOPERATIVE DIAGNOSIS: 1. ABSCESS, LEFT AXILLA. 2. ABSCESS, RIGHT PERINEAL AREA. POSTOPERATIVE DIAGNOSIS: 1. ABSCESS, LEFT AXILLA. 2. ABSCESS, RIGHT PERINEAL AREA. OPERATION: Incision and drainage with pulse lavage of left axillary abscess and right perineal area abscess. SURGEON: LIZETH LAM M.D. ANESTHESIA: Local MAC INDICATION FOR PROCEDURE: This is a 46-year-old female who noted pains in the left axilla and the right perineal area for about a week. This is noted to be getting worse and painful and patient went to the ED today where she was noted to have abscesses in the left axilla and the right perineal area. DESCRIPTION OF PROCEDURE: After adequate IV sedation, patient was placed in a supine position and the left axilla was then prepped and draped in the usual sterile fashion. Local anesthesia infiltrated along the left axillary abscess site. There was initial opening noted. It was then probed with a hemostat and purulent material extruded out. Cultures were taken. Next, a cruciate incision was made. Finger dissection was then performed and the abscess cavity noted to be quite deep, at least 5 cm. The incision was extended distally to a total distance of about 4-5 cm. The area was subsequently pulse lavaged with 1000 L of saline. Following this, hemostasis was then obtained with the use of cautery. The cavity, which was roughly about 4 x 4 cm, was then packed with Iodoform gauze. Sterile 4x4 and ABD pad was then used as dressings. The patient was then placed in lithotomy position and the perineal area was the prepped and draped in the usual sterile fashion. We had an appropriate timeout earlier just before the incision and drainage of left axillary area. Following this, the right perineal area was then anesthetized using 1% Xylocaine and 0.25% Marcaine 50/50. There was also a small area of opening, as noted by injecting anesthesia that came out through the right side close to the crease between the perineal area and the thigh. This area was again probed with a hemostat and another set of cultures were obtained. A lot of purulent material extruded out. Next, after localized anesthesia infiltrated, a cruciate incision was made. This time, the cavity site appears to be relatively shallower, about 2 cm deep and about 3 x 3 cm wide. Cautery was then done to control the bleeding. Next, the area was then irrigated with saline solution. There was some necrotic tissue that was debrided with the hemostat. Further hemostasis was obtained with cautery. Next, the area, roughly about 3 x 3 x 3 cm deep was then packed with Iodoform gauze. Sterile 4x4 and ABD pad was then used as dressing. Patient tolerated procedure well. Needle, instrument counts were all correct. ESTIMATED BLOOD LOSS: About 30 mL. DISPOSITION: Patient brought to the PACU in satisfactory condition. DICTATING PHYSICIAN: LIZETH LAM M.D. [id number] PHY#: [id number] ID: [id number] JOB#: [id number] ACCT: [id number] cc:LIZETH LAM M.D. >
[2017-05-26] MEDS ORDERED: INSULIN REGULAR HUMAN SQ SCH (16:00)
[2017-05-26] MEDS ORDERED: ATORVASTATIN CALCIUM 20 MG TABLET PO SCH (22:00)
--- NOTE | 2017-05-27 22:24 | DISCHARGE SUMMARY E ---
Discharge Summary NAME: KATHLEEN HARDING : 1970 AGE: 46Y ADMITTED: 05/25/2017 DISCHARGED: 05/26/2017 FINAL DIAGNOSIS: 1. Abscesses; 1) left axillary areas and 2) right perineal area. 2. Diabetes mellitus on metformin and Humulin. PROCEDURE DONE: On 05/25/17 incision and drainage of the left axillary abscess and the right perineal abscess. HOSPITAL COURSE: This is a 46-year-old female who is morbidly obese and noted to have pains along the left axilla and right perineal area for about a week. She was noted to have an abscess of these sites and subsequently taken to the operating room on the day of admission on 05/25/17. These abscesses were drained and debrided and packed. On the day of discharge the packings were removed and a light packing was placed on both axilla and the right perineal area. She was then discharged improved to be followed up in the surgical clinic on Monday 05/29, for removal of the packings. DICTATING PHYSICIAN: LIZETH LAM M.D. [id number] PHY#: [id number] ID: [id number] JOB#: [id number] ACCT: [id number] cc:Niranjan SWAIN PA >
== END 2017-05-26 13:44 | disposition home or self-care (01) ==
LOC: ER 11:37 → EH 14:21 → 2S 19:30
PROVIDERS: ATTEND Surgery
PROC: 0H9CXZZ Drainage of Left Upper Arm Skin, External Approach (ICD-10-PCS; 2017-05-25)
PROC: 0HDCXZZ Extraction of Left Upper Arm Skin, External Approach (ICD-10-PCS; 2017-05-25)
PROC: HZ31ZZZ Individual Counseling for Substance Abuse Treatment, Behavioral (ICD-10-PCS; principal; 2017-05-25 17:00)
PROC: 0W9N0ZZ Drainage of Female Perineum, Open Approach (ICD-10-PCS; 2017-05-25 17:00)
DX: L02.412 Cutaneous abscess of left axilla (principal); L02.215 Cutaneous abscess of perineum; E11.9 Type 2 diabetes mellitus without complications; E66.01 Morbid (severe) obesity due to excess calories; Z68.44 Body mass index [BMI] 60.0-69.9, adult; F17.210 Nicotine dependence, cigarettes, uncomplicated; Z86.14 Personal history of Methicillin resistant Staphylococcus aureus infection; Z79.4 Long term (current) use of insulin
CPT/HCPCS: 56405; 10060; 93005; 99406; 99284; 96361; 96365; 36415; 87070; 87205; 82962 ×2; 85025; 87075; 87077; 80053; 81001; 87186; 71046; 93010; 11000; G0378 ×2; J2250; A9270 ×10; J1885; J3010; J3490 ×2; J2270; J2405; J7030 ×2; J2704; 400; J1815

== ENCOUNTER 2017-07-02 12:18 | Inpatient (IN) | payer MEDICARE, MEDICAID ==
[~2017-07-02 12:18] MED LIST: LIDOCAINE 2% INJ-PF (20 MG/ML) 2 ML AMPUL ONE; ONDANSETRON HCL INJ/PF 4 MG/2 ML SDV ONE; SUCCINYLCHOLINE CHLORIDE INJ 200 MG/10 ML VIAL ONE
--- NOTE | 2017-07-02 15:10 | RADIOLOGY REPORT (SQ) ---
EXAM DESCRIPTION: CT ABD/PELVIS WITH IV ORAL COMPLETED DATE/TIME: 07/02/2017 2:43 pm REASON FOR STUDY: L02.211 CUTANEOUS ABSCESS OF ABDOMINAL WALL Z09 ENCNTR FOR F/U EXAM AFT TRT L02.21 1 CUTANEOUS ABSCESS OF ABDOMINAL WALL Z09 ENCNTR FOR F/U EXAM AFT TRTMT FOR COND OTH THAN MALIG NE COMPARISON: CT abdomen pelvis 03/28/2017, 01/10/2017, 01/09/2017 TECHNIQUE: CT scan of the abdomen and pelvis performed with intravenous and oral contrast using jacoby ranjana scanning technique with dynamic intravenous contrast injection. Images reviewed with lung, soft t issue, and bone windows. Reconstructed coronal and sagittal MPR images reviewed. Delayed images for e valuation of the urinary system also acquired. All images stored on PACS. All CT scanners at this facility use dose modulation, iterative reconstruction, and/or weight based d osing when appropriate to reduce radiation dose to as low as reasonably achievable (ALARA). [facility]: Dose Right [facility]: CareDose [facility]: Dose Right [facility]: Teradose 4D [facility]: [employer] CONTRAST TYPE AND DOSE: contrast/concentration: Isovue 370.00 mg/ml; Total Contrast Delivered: 100.0 ml; Total Saline Delivered: 72.0 ml RENAL FUNCTION: Creatinine 0.7 RADIATION DOSE: CT Rad equipment meets quality standard of care and radiation dose reduction techniq ues were employed. CTDIvol: 26.6 - 31.7 mGy. DLP: 3524 mGy-cm.. LIMITATIONS: Morbidly obese patient. FINDINGS: At the level of the prior umbilical hernia repair, there is an anterior abdominal wall abs cess in the subcutaneous and deep fat containing fluid and air bubbles with a thick peripheral rim of enhancement measuring 10 cm craniocaudad by 7 cm transverse by 5 cm AP. This is along the anterior abdominal wall panniculus, best shown on axial image 92, coronal image 26, and sagittal image 54. Ab scess extends up to the skin surface just to the left of midline on axial image 90. No ventral hernia repair dehiscence is identified. Abscess is superficial to the mesh LOWER CHEST: Lung bases are clear. Moderate to heavy diffuse coronary artery calcification LIVER: Low attenuation from fatty infiltration. No focal masses. SPLEEN: Normal size. No focal lesions. PANCREAS: No masses. No significant calcifications. No adjacent inflammation or peripancreatic fluid collections. Pancreatic duct not dilated. GALLBLADDER: No identified stones by CT criteria. No inflammatory changes to suggest cholecystitis. ADRENAL GLANDS: No significant masses or asymmetry. RIGHT KIDNEY AND URETER: No solid masses. No significant calcification. No hydronephrosis or hydroure ter. LEFT KIDNEY AND URETER: No solid masses. No significant calcification. No hydronephrosis or hydrouret er. AORTA AND VESSELS: No aneurysm. No dissection. Renal arteries, SMA, celiac without stenosis. RETROPERITONEUM: No retroperitoneal adenopathy, hemorrhage or masses. BOWEL AND PERITONEAL CAVITY: No obstruction. No visualized masses. No free fluid. No inflammatory ch anges or thickening of bowel wall. Patient drank oral contrast. No CT evidence of bowel obstruction . APPENDIX: Normal. PELVIS: No significant masses. Normal bladder. No free fluid. ABDOMINAL WALL: As above BONES: No significant or acute findings. OTHER: No other significant finding. IMPRESSION: Abscess in the anterior abdominal wall fat from the skin down to the abdominal wall bradley ia repair. Mesh is intact. TECHNICAL DOCUMENTATION: JOB ID: [id number] Quality ID # [id number]: Final reports with documentation of one or more dose reduction techniques (e.g., Au tomated exposure control, adjustment of the mA and/or kV according to patient size, use of iterative reconstruction technique) 2010 [employer]- All Rights Reserved
[2017-07-02] MEDS ORDERED: NORMAL SALINE 1000 ML 1,000 ML IV PRN ×2 (16:49→20:30)
[2017-07-02] MEDS ORDERED: METRONIDAZOLE 500 MG/NS RTU 100 ML IV PRN (16:56)
[2017-07-02] MEDS ORDERED: METRONIDAZOLE 500 MG/NS RTU 100 ML IV ONE (17:02)
[2017-07-02 17:13] LABS: ABSOLUTE BASOPHILS # (AUTO) 0.1 10^3/uL (0.0-0.2); ABSOLUTE EOSINOPHILS # (AUTO) 0.2 10^3/uL (0.0-0.6); ABSOLUTE LYMPHOCYTES (AUTO) 2.2 10^3/uL (0.5-4.7); ABSOLUTE MONOCYTES (AUTO) 0.5 10^3/uL (0.1-1.4); ABSOLUTE NEUT (AUTO) 4.2 10^3/uL (1.7-8.2); EOSINOPHILS % (AUTO) 2.2 % (0-6); HEMATOCRIT 36.2 % (36.0-47.0); HEMOGLOBIN 11.9 g/dL (12.0-15.5); LYMPHOCYTES % (AUTO) 30.2 % (13-45); MEAN CORPUSCULAR HEMOGLOBIN 26.4 pg (27.0-33.4); MEAN CORPUSCULAR HGB CONC 32.8 g/dL (32.0-36.0); MEAN CORPUSCULAR VOLUME 81 fl (80-97); MONOCYTES % (AUTO) 7.5 % (3-13); PLATELET COUNT 235 10^3/uL (150-450); SEGMENTED NEUTROPHILS % (AUTO) 59.1 % (42-78); TOTAL CELLS COUNTED % (AUTO) 100 %; WHITE BLOOD COUNT 7.2 10^3/uL (4.0-10.5)
[2017-07-02 17:29] LABS: ALANINE AMINOTRANSFERASE 35 U/L (9-52); ALBUMIN 3.6 g/dL (3.5-5.0); ALKALINE PHOSPHATASE 51 U/L (38-126); ANION GAP 11 (5-19); ASPARTATE AMINO TRANSFERASE 17 U/L (14-36); BILIRUBIN,DIRECT 0.2 mg/dL (0.0-0.4); BILIRUBIN,TOTAL 0.2 mg/dL (0.2-1.3); BLOOD UREA NITROGEN 18 mg/dL (7-20); CALCIUM 9.6 mg/dL (8.4-10.2); CARBON DIOXIDE 27 mmol/L (22-30); CHLORIDE 100 mmol/L (98-107); GLUCOSE 153 mg/dL (75-110); POTASSIUM 4.7 mmol/L (3.6-5.0); SODIUM 137.8 mmol/L (137-145)
[2017-07-02] MEDS ORDERED: PIPERACILLIN SODIUM/TAZOBACTAM 4.5 GM in NORMAL SALINE 100 ML IV ONE (18:00)
[2017-07-02] MEDS ORDERED: VANCOMYCIN HCL 1,500 MG in DEXTROSE 5%-WATER 250 ML IV ONE (18:00)
--- NOTE | 2017-07-02 18:09 | PDOC H&P ---
History of Present Illness Admission Date/PCP: 07/02/17 15:55 ADALBERTO VALLE PA-C Patient complains of: abdominal pain History of Present Illness: KATHLEEN HARDING is a 46 year old female, mprbidly obese who underwent open ventral hermiorraphy with mesh in March 2017. Yesterday, she started complaining of abdominal wall pain. A CT scan A/P has been done today which shows a large abdominal wall abscess with fluid and gas bubble, the abdominal wall repair is intact and the abscess does not extend into the abdominal cavity. Past Medical History Cardiac Medical History: Reports: Hyperlipidema, Hypertension Denies: Congestive Heart Failure, Myocardial Infarction Pulmonary Medical History: Reports: Asthma, Bronchitis Denies: Chronic Obstructive Pulmonary Disease (COPD), Pneumonia, Tuberculosis Neurological Medical History: Denies: Seizures Endocrine Medical History: Reports: Diabetes Mellitus Type 2 Renal/ Medical History: Denies: End Stage Renal Disease GI Medical History: Denies: Cirrhosis, Gastroesophageal Reflux Disease Musculoskeltal Medical History: Reports: Arthritis Psychiatric Medical History: Reports: Bipolar Disorder, Depression Hematology: Denies: Bleeding Tendencies Infectious Medical History: Reports: Methicillin-Resistant Staph Aureus Past Surgical History Past Surgical History: Reports: Other - Ventral/umbilical hernia repair with mesh 5 years ago in [place] Social History Information Source: Patient Lives with: Alone Smoking Status: Current Some Day Smoker Frequency of Alcohol Use: Rare Hx Recreational Drug Use: No Drugs: None Hx Prescription Drug Abuse: No - Advance Directive Resuscitation Status: Full Code Family History Family History: Arthritis, CAD, CVA, DM, Hyperlipidemia, Hypertension, Malignancy, Thyroid Disfunction. denies: COPD Parental Family History Reviewed: Yes Children Family History Reviewed: Yes Sibling(s) Family History Reviewed.: Yes Medication/Allergy Home Medications: Aripiprazole [Abilify] 20 mg PO DAILY 05/25/17 Baclofen [Baclofen 20 Mg Tablet] 20 mg PO QIDP PRN 05/25/17 Fenofibrate Nanocrystallized [Tricor 145 mg Tablet] 145 mg PO DAILY 05/25/17 Fluticasone Propionate [Flonase Nasal [place] 50 Mcg/[place] 16 gm] 2 sprays NASL DAILY 05/25/17 Furosemide [Lasix] 40 mg PO BID 05/25/17 Insulin Regular, Human [Humulin R U-500 Kwikpen] 75 unit SQ ACSUPPER 05/25/17 Insulin Regular, Human [Humulin R U-500 Kwikpen] 80 unit SQ ACBRKFST 05/25/17 Insulin Regular, Human [Humulin R U-500 Kwikpen] 80 units SQ ACLUNCH 05/25/17 Linaclotide [Linzess] 290 mcg PO DAILYP PRN 05/25/17 Lisinopril [Prinivil 40 mg Tablet] 40 mg PO DAILY 05/25/17 Metformin HCl [Glucophage XR 500 mg Tablet] 1,000 mg PO QHS 05/25/17 Metformin HCl [Glucophage XR 500 mg Tablet] 500 mg PO ACBRKFST 05/25/17 Omeprazole 40 mg PO ACBRKFST 05/25/17 Oxcarbazepine [Trileptal] 300 mg PO Q12HP PRN 05/25/17 Oxycodone HCl [Oxycontin Sr 10 mg Tablet] 10 mg PO Q12 05/25/17 Oxycodone HCl/Acetaminophen [Oxycodone-Acetaminophen 10-325] 1 each PO BIDP PRN 05/25/17 Pregabalin [Lyrica] 300 mg PO Q12 05/25/17 Rosuvastatin Calcium [Crestor] 10 mg PO QHS 05/25/17 Venlafaxine HCl [Effexor] 100 mg PO DAILY 05/25/17 Allergies/Adverse Reactions: brompheniramine [From Lodrane D] Allergy (Verified 02/02/17 10:31) clotrimazole [From Mycelex] Allergy (Verified 02/02/17 10:31) pseudoephedrine [From Lodrane D] Allergy (Verified 02/02/17 10:31) Physical Exam General appearance: PRESENT: mild distress Head exam: PRESENT: atraumatic Mouth exam: PRESENT: dry mucosa Respiratory exam: PRESENT: clear to auscultation barry Cardiovascular exam: PRESENT: RRR GI/Abdominal exam: PRESENT: tenderness - periumbiical arfea on the left with drainage, other - large abdominal pannus extending beyond the perineum Results Laboratory Results: 07/02/17 17:05 07/02/17 17:05 07/02/17 07/02/17 17:05 17:05 WBC 7.2 RBC 4.50 Hgb 11.9 L Hct 36.2 MCV 81 MCH 26.4 L MCHC 32.8 RDW 16.0 H Plt Count 235 Seg Neutrophils % 59.1 Lymphocytes % 30.2 Monocytes % 7.5 Eosinophils % 2.2 Basophils % 1.0 Absolute Neutrophils 4.2 Absolute Lymphocytes 2.2 Absolute Monocytes 0.5 Absolute Eosinophils 0.2 Absolute Basophils 0.1 Sodium 137.8 Potassium 4.7 Chloride 100 Carbon Dioxide 27 Anion Gap 11 BUN 18 Creatinine 0.74 Est GFR ( Amer) > 60 Est GFR (Non-Af Amer) > 60 Glucose 153 H Calcium 9.6 Total Bilirubin 0.2 AST 17 ALT 35 Alkaline Phosphatase 51 Total Protein 6.0 L Albumin 3.6 Impressions: Abdomen/Pelvis CT 07/02/17 12:27 IMPRESSION: Abscess in the anterior abdominal wall fat from the skin down to the abdominal wall hernia repair. Mesh is intact. Assessment & Plan - Plan Summary Plan Summary: A/ /p repair of anterior ventral hernia with mesh in March 2017 CT scan A/P done today reveals a large subcutaneous abscess in the location of the repair (periumbilucal), no abdominal or intraabdominal extension Normal blood work P/ Emergent I&D of abdominal wall abscess with WoundVac placement tonight Blood cultures Guerra Urine culture
[2017-07-02] MEDS ORDERED: MIDAZOLAM 2 MG/2 ML INJ ONE (18:11)
[2017-07-02] MEDS ORDERED: FENTANYL CITRATE INJ/PF 100 MCG/2 ML AMPUL ONE ×2 (18:11)
[2017-07-02] MEDS ORDERED: HYDROMORPHONE HCL INJ/PF 2 MG/ML AMPULE ONE (18:12)
[2017-07-02] MEDS ORDERED: PROPOFOL INJ 200 MG/20 ML VIAL IV ONE (18:12)
[2017-07-02] MEDS ORDERED: DEXMEDETOMIDINE INJ 80 MCG/20 ML VIAL IV ONE (18:42)
[2017-07-02] MEDS ORDERED: MORPHINE SULFATE 10 MG/ML INJ IV PRN (18:54)
[2017-07-02] MEDS ORDERED: MEPERIDINE HCL/PF INJ 25 MG/1 ML DISP.SYRIN IV PRN (18:54)
[2017-07-02] MEDS ORDERED: FENTANYL CITRATE INJ/PF 100 MCG/2 ML AMPUL IV PRN ×3 (18:54)
[2017-07-02] MEDS ORDERED: DIPHENHYDRAMINE HCL 50 MG/ML VIAL IV PRN (18:54)
[2017-07-02] MEDS ORDERED: PROMETHAZINE HCL INJ 25 MG/1 ML VIAL IV PRN (18:54)
--- NOTE | 2017-07-02 19:40 | Operative Report ---
Operative Report DATE OF SURGERY: 07/02/17 PREOPERATIVE DIAGNOSIS: anterior abdominal wall anbscess POSTOPERATIVE DIAGNOSIS: same OPERATION: 1) Complex anterior abdpminal wall debridment. 2) WoundVac placement SURGEON: KHANH TENA ANESTHESIA: GA TISSUE REMOVED OR ALTERED: abscess cavity COMPLICATIONS: none ESTIMATED BLOOD LOSS: 30 mL INTRAOPERATIVE FINDINGS: large 15 cm anterior abdominal wall abscess cavity PROCEDURE: see dictation
[2017-07-02] MEDS ORDERED: HYDROMORPHONE HCL INJ/PF 2 MG/ML AMPULE IV PRN (20:31)
[2017-07-02] MEDS ORDERED: INSULIN REG, HUMAN 100 UNIT/ML 3 ML VIAL (PYX) SUBCUT PRN (20:50)
[2017-07-02] MEDS ORDERED: DEXTROSE 50%-WATER SYRINGE 12.5 GM/25 ML DOSE IV PRN (20:50)
[2017-07-02] MEDS ORDERED: GLUCAGON,HUMAN RECOMB 1 MG INJ IM PRN (20:50)
[2017-07-02] MEDS ORDERED: DEXTROSE 40% GEL 15 GM TUBE X 2 PO PRN (20:50)
[2017-07-02] MEDS ORDERED: DEXTROSE 40% GEL 15 GM TUBE PO PRN (20:50)
[2017-07-02] MEDS ORDERED: DEXTROSE 50%-WATER SYRINGE 25 GM/50 ML DOSE IV PRN (20:50)
[2017-07-02 22:02] LABS: ABSOLUTE BASOPHILS # (AUTO) 0.1 10^3/uL (0.0-0.2); ABSOLUTE EOSINOPHILS # (AUTO) 0.1 10^3/uL (0.0-0.6); ABSOLUTE LYMPHOCYTES (AUTO) 2.2 10^3/uL (0.5-4.7); ABSOLUTE MONOCYTES (AUTO) 0.4 10^3/uL (0.1-1.4); ABSOLUTE NEUT (AUTO) 4.3 10^3/uL (1.7-8.2); BASOPHILS % (AUTO) 1.2 % (0-2); HEMATOCRIT 38.7 % (36.0-47.0); HEMOGLOBIN 12.7 g/dL (12.0-15.5); LYMPHOCYTES % (AUTO) 30.6 % (13-45); MEAN CORPUSCULAR HEMOGLOBIN 26.9 pg (27.0-33.4); MEAN CORPUSCULAR HGB CONC 32.9 g/dL (32.0-36.0); MEAN CORPUSCULAR VOLUME 82 fl (80-97); PLATELET COUNT 193 10^3/uL (150-450); RED BLOOD COUNT 4.73 10^6/uL (3.72-5.28); RED CELL DISTRIBUTION WIDTH 16.4 % (11.5-14.0); SEGMENTED NEUTROPHILS % (AUTO) 60.2 % (42-78); TOTAL CELLS COUNTED % (AUTO) 100 %; WHITE BLOOD COUNT 7.1 10^3/uL (4.0-10.5)
[2017-07-02 22:14] LABS: ANION GAP 11 (5-19); BLOOD UREA NITROGEN 18 mg/dL (7-20); CALCIUM 9.4 mg/dL (8.4-10.2); CARBON DIOXIDE 26 mmol/L (22-30); CHLORIDE 101 mmol/L (98-107); GLUCOSE 163 mg/dL (75-110); POTASSIUM 4.7 mmol/L (3.6-5.0); SODIUM 137.7 mmol/L (137-145)
[2017-07-02] MEDS ORDERED: FLUCONAZOLE 400 MG/NS RTU 400 MG/200 ML RTUPB IV ONE (23:00)
[2017-07-03] MEDS: PIPERACILLIN SODIUM/TAZOBACTAM 4.5 GM in NORMAL SALINE 100 ML IV SCH ×4 (00:13→18:35)
[2017-07-03] MEDS ORDERED: NICOTINE 21 MG/24 HR PATCH.TD24 TD ONE (01:00)
[2017-07-03] MEDS: METRONIDAZOLE 500 MG/NS RTU 100 ML IV SCH ×3 (01:38→17:33)
--- NOTE | 2017-07-03 01:49 | PDOC CONSULTATION ---
History of Present Illness Admission Date/PCP: 07/02/17 15:55 ADALBERTO VALLE PA-C Patient complains of: Diabetes management postop #0. History of Present Illness: 46-year-old morbidly obese female with history of type 2 diabetes mellitus, hypertension and NORMA (being evaluated) was admitted to the surgical service with large abdominal wall abscess. She underwent a complex anterior abdominal wall debridement and wound VAC was placed. The hospitalist's service was consulted for further management of her diabetes postop. The patient currently denies any nausea, vomiting but complains of some abdominal "soreness". She also denies any fever or chills, diarrhea or dysuria. Past Medical History Cardiac Medical History: Reports: Hyperlipidema, Hypertension Denies: Congestive Heart Failure, Myocardial Infarction Pulmonary Medical History: Reports: Asthma, Bronchitis Denies: Chronic Obstructive Pulmonary Disease (COPD), Pneumonia, Tuberculosis Neurological Medical History: Denies: Seizures Endocrine Medical History: Reports: Diabetes Mellitus Type 2 GI Medical History: Denies: Cirrhosis Musculoskeltal Medical History: Reports: Arthritis Psychiatric Medical History: Reports: Bipolar Disorder, Depression Hematology: Denies: Bleeding Tendencies Infectious Medical History: Reports: Methicillin-Resistant Staph Aureus Past Surgical History Past Surgical History: Reports: Other - Ventral/umbilical hernia repair with mesh 5 years ago in [place] Social History Lives with: Alone Smoking Status: Current Some Day Smoker Cigarettes Packs Per Day: 1 - 1 pack a day for 30 years. Frequency of Alcohol Use: Rare Hx Recreational Drug Use: No Drugs: None Hx Prescription Drug Abuse: No - Advance Directive Resuscitation Status: Full Code Family History Parental Family History Reviewed: Yes - Father: Heart disease and diabetes. Mother: Heart disease and diabetes. Children Family History Reviewed: No Sibling(s) Family History Reviewed.: Yes Medication/Allergy Home Medications: Aripiprazole [Abilify] 20 mg PO DAILY 05/25/17 Baclofen [Baclofen 20 Mg Tablet] 20 mg PO QIDP PRN 05/25/17 Fenofibrate Nanocrystallized [Tricor 145 mg Tablet] 145 mg PO DAILY 05/25/17 Fluticasone Propionate [Flonase Nasal [place] 50 Mcg/[place] 16 gm] 2 sprays NASL DAILY 05/25/17 Furosemide [Lasix] 40 mg PO BID 05/25/17 Insulin Regular, Human [Humulin R U-500 Kwikpen] 60 unit SQ ACBRKFST 05/25/17 Insulin Regular, Human [Humulin R U-500 Kwikpen] 75 unit SQ ACSUPPER 05/25/17 Insulin Regular, Human [Humulin R U-500 Kwikpen] 75 units SQ ACLUNCH 05/25/17 Linaclotide [Linzess] 290 mcg PO DAILYP PRN 05/25/17 Lisinopril [Prinivil 40 mg Tablet] 40 mg PO DAILY 05/25/17 Metformin HCl [Glucophage XR 500 mg Tablet] 1,000 mg PO QHS 05/25/17 Metformin HCl [Glucophage XR 500 mg Tablet] 500 mg PO ACBRKFST 05/25/17 Omeprazole 40 mg PO ACBRKFST 05/25/17 Oxcarbazepine [Trileptal] 300 mg PO Q12HP PRN 05/25/17 Pregabalin [Lyrica] 300 mg PO Q12 05/25/17 Rosuvastatin Calcium [Crestor] 10 mg PO QHS 05/25/17 Venlafaxine HCl [Effexor] 100 mg PO DAILY 05/25/17 Allergies/Adverse Reactions: brompheniramine [From Lodrane D] Allergy (Verified 02/02/17 10:31) clotrimazole [From Mycelex] Allergy (Verified 02/02/17 10:31) gabapentin Allergy (Verified 07/02/17 20:25) hydroxyzine Allergy (Verified 07/02/17 20:25) pseudoephedrine [From Lodrane D] Allergy (Verified 02/02/17 10:31) Review of Systems Constitutional: PRESENT: as per HPI - Pertinent positives and negatives as per HPI. Eyes: ABSENT: visual disturbances Nose, Mouth, and Throat: ABSENT: mouth pain, sore throat Cardiovascular: ABSENT: chest pain, palpitations Respiratory: ABSENT: cough, dyspnea Gastrointestinal: PRESENT: as per HPI Musculoskeletal: ABSENT: joint swelling, muscle weakness Neurological: ABSENT: abnormal gait, confusion Physical Exam Vital Signs: Temp Pulse Resp BP Pulse Ox 97.4 F 63 16 83/56 L 98 07/02/17 21:20 07/02/17 21:20 07/02/17 21:20 07/02/17 21:20 07/02/17 21:20 Intake & Output 07/01/17 07/02/1707/03/18 06:59 06:59 06:59 Intake Total 3750 Output Total 2290 Balance 1460 Weight 146 kg General appearance: PRESENT: no acute distress, well-developed, well-nourished Head exam: PRESENT: atraumatic, normocephalic Eye exam: PRESENT: conjunctiva pink, PERRLA. ABSENT: scleral icterus Mouth exam: PRESENT: moist, tongue midline Neck exam: PRESENT: full ROM. ABSENT: JVD Respiratory exam: PRESENT: clear to auscultation barry. ABSENT: rales, rhonchi, wheezes Cardiovascular exam: PRESENT: RRR. ABSENT: diastolic murmur, systolic murmur Pulses: PRESENT: normal dorsalis pedis pul GI/Abdominal exam: PRESENT: hypoactive bowel sounds, soft, tenderness - some diffuse tenderness, wound vac in place.. ABSENT: distended, guarding, rebound Rectal exam: PRESENT: deferred Extremities exam: PRESENT: full ROM. ABSENT: pedal edema Neurological exam: PRESENT: motor sensory deficit, other - Sleepy but arousable. Psychiatric exam: PRESENT: appropriate affect, normal mood. ABSENT: homicidal ideation, suicidal ideation Skin exam: PRESENT: dry, intact, warm. ABSENT: cyanosis, rash Results Laboratory Results: 07/02/17 21:52 07/02/17 21:52 07/02/17 07/02/17 07/02/17 17:05 17:05 21:52 WBC 7.2 7.1 RBC 4.50 4.73 Hgb 11.9 L 12.7 Hct 36.2 38.7 MCV 81 82 MCH 26.4 L 26.9 L MCHC 32.8 32.9 RDW 16.0 H 16.4 H Plt Count 235 193 Seg Neutrophils % 59.1 60.2 Lymphocytes % 30.2 30.6 Monocytes % 7.5 6.0 Eosinophils % 2.2 2.0 Basophils % 1.0 1.2 Absolute Neutrophils 4.2 4.3 Absolute Lymphocytes 2.2 2.2 Absolute Monocytes 0.5 0.4 Absolute Eosinophils 0.2 0.1 Absolute Basophils 0.1 0.1 Sodium 137.8 Potassium 4.7 Chloride 100 Carbon Dioxide 27 Anion Gap 11 BUN 18 Creatinine 0.74 Est GFR ( Amer) > 60 Est GFR (Non-Af Amer) > 60 Glucose 153 H Calcium 9.6 Total Bilirubin 0.2 AST 17 ALT 35 Alkaline Phosphatase 51 Total Protein 6.0 L Albumin 3.6 07/02/17 21:52 WBC RBC Hgb Hct MCV MCH MCHC RDW Plt Count Seg Neutrophils % Lymphocytes % Monocytes % Eosinophils % Basophils % Absolute Neutrophils Absolute Lymphocytes Absolute Monocytes Absolute Eosinophils Absolute Basophils Sodium 137.7 Potassium 4.7 Chloride 101 Carbon Dioxide 26 Anion Gap 11 BUN 18 Creatinine 0.78 Est GFR ( Amer) > 60 Est GFR (Non-Af Amer) > 60 Glucose 163 H Calcium 9.4 Total Bilirubin AST ALT Alkaline Phosphatase Total Protein Albumin Impressions: Abdomen/Pelvis CT 07/02/17 12:27 IMPRESSION: Abscess in the anterior abdominal wall fat from the skin down to the abdominal wall hernia repair. Mesh is intact. Assessment & Plan - Diagnosis (1) Type 2 diabetes mellitus Qualifiers: Diabetes mellitus complication status: with neurologic complications Diabetes mellitus complication detail: with other neurological complication Diabetes mellitus terminal superintendent insulin use: with fpc use Qualified Code(s) : E11.49 - Type 2 diabetes mellitus with other diabetic neurological complication; Z79.4 - superintendent [employer] (current) use of insulin; Z79.4 - [facility] ( current) use of insulin; Z79.4 - [facility] (current) use of insulin; Z79.4 - [facility] (current) use of insulin Is this a current diagnosis for this admission?: Yes Plan: Will resume her regular insulin and continue insulin sliding scale. She is on metformin at home as well (held now). (2) Essential hypertension Is this a current diagnosis for this admission?: Yes Plan: The patient had a hypotensive episode x1. We will continue IV fluids and monitor for now. (3) Obstructive sleep apnea Is this a current diagnosis for this admission?: No Plan: The patient missed her sleep study appointment. She needs to reschedule. (4) Morbid obesity Is this a current diagnosis for this admission?: No Plan: BMI 60.7 (6) Smoker Is this a current diagnosis for this admission?: Yes Plan: 1 pack a day from for 30 years. Nicotine patch.
[2017-07-03] MEDS: VANCOMYCIN HCL 1,500 MG in DEXTROSE 5%-WATER 250 ML IV SCH ×2 (06:42→19:35)
[2017-07-03] MEDS: ENOXAPARIN SODIUM INJ 40 MG/0.4 ML DISP.SYRIN SUBCUT SCH (06:44)
[2017-07-03 06:53] LABS: ABSOLUTE BASOPHILS # (AUTO) 0.1 10^3/uL (0.0-0.2); ABSOLUTE EOSINOPHILS # (AUTO) 0.1 10^3/uL (0.0-0.6); ABSOLUTE LYMPHOCYTES (AUTO) 1.2 10^3/uL (0.5-4.7); ABSOLUTE MONOCYTES (AUTO) 0.5 10^3/uL (0.1-1.4); ABSOLUTE NEUT (AUTO) 6.7 10^3/uL (1.7-8.2); BASOPHILS % (AUTO) 0.8 % (0-2); EOSINOPHILS % (AUTO) 1.2 % (0-6); HEMOGLOBIN 11.6 g/dL (12.0-15.5); LYMPHOCYTES % (AUTO) 13.8 % (13-45); MEAN CORPUSCULAR HEMOGLOBIN 26.5 pg (27.0-33.4); MEAN CORPUSCULAR HGB CONC 33.1 g/dL (32.0-36.0); MEAN CORPUSCULAR VOLUME 80 fl (80-97); MONOCYTES % (AUTO) 6.2 % (3-13); PLATELET COUNT 218 10^3/uL (150-450); RED BLOOD COUNT 4.38 10^6/uL (3.72-5.28); TOTAL CELLS COUNTED % (AUTO) 100 %; WHITE BLOOD COUNT 8.6 10^3/uL (4.0-10.5)
[2017-07-03 07:00] LABS: INTERNATIONAL RATION (INR) 0.93; PROTHROMBIN TIME 13.1 SEC (11.4-15.4)
[2017-07-03 07:10] LABS: ANION GAP 9 (5-19); BLOOD UREA NITROGEN 13 mg/dL (7-20); CARBON DIOXIDE 25 mmol/L (22-30); CHLORIDE 103 mmol/L (98-107); GLUCOSE 193 mg/dL (75-110); POTASSIUM 4.8 mmol/L (3.6-5.0); SODIUM 136.7 mmol/L (137-145)
[2017-07-03] MEDS: INSULIN REG, HUMAN 100 UNIT/ML 3 ML VIAL (PYX) SUBCUT SCH ×3 (08:02→18:07)
--- NOTE | 2017-07-03 09:18 | RADIOLOGY REPORT (SQ) ---
EXAM DESCRIPTION: PICC INSERTION; FLUORO/CV PLACEMENT; U/S GUIDE FOR VASCULAR ACCESS COMPLETED DATE/TIME: 07/03/2017 8:54 am REASON FOR STUDY: longterm antibotics; IV ABX COMPARISON: AP chest 05/25/2017 FLUOROSCOPY TIME: 31 seconds 1 digital chest radiograph and 1 ultrasound images saved to PACS. TECHNIQUE: Fluoroscopic and ultrasound guided PICC placement. LIMITATIONS: None. PROCEDURE: After written consent and assessment were obtained, the patient was brought into the fluo roscopy room and place supine on the table. Ultrasound was used on the patient's left arm for PICC a ccess. The left arm was prepped and draped in a sterile fashion along with the ultrasound probe. The entry site was anesthetized with 1% lidocaine. A 21 gauge 7 cm needle was advanced through the skin a nd into the basilic vein under live ultrasound guidance. An ultrasound image was saved to PACS confi rming access site. A .018 guide wire was then inserted through the needle and into the venous system . The needle was the removed and an 11 blade scalpel was used to make a 1cm skin incision. A 5 fr pe el-away sheath was advanced over the wire and into the venous system. A measurement was then made usi ng the existing wire and live fluoroscopic guidance. The wire was then removed and the trimmed. The P ICC was advanced through the peel-away sheath and into the venous system. The peel-away sheath was re moved and the catheter was adhered to the patients arm with a stat lock. The catheter was then aspira barbie and flushed and a sterile bandage was placed over the access site. A fluoroscopic spot image was saved to PACS confirming the catheter tip within the superior vena cava. IMPRESSION: SUCCESSFUL PLACEMENT OF A 5 FR DUAL LUMEN 43 CM PICC IN THE LEFT BASILIC VEIN. COMMENT: Patient medication list reviewed: Yes- Quality ID# 130:Eligible professional attests to doc umenting in the medical record they obtained, updated, or reviewed the patient's current medications. . Quality ID 145: Final reports for procedures using fluoroscopy that document radiation exposure lori kenn, or exposure time and number of fluorographic images (if radiation exposure indices are not avail able) Quality ID #76: The patient was prepped and draped using maximum sterile barrier technique including cap, mask, sterile gown, sterile gloves, a large sterile sheet, hand hygiene, and 2% Chlorhexidine fo r cutaneous antisepsis. When ultrasound is used, sterile ultrasound techniques are followed requiring sterile gel and sterile probes. TECHNICAL DOCUMENTATION: JOB ID: [id number] [employer]- All Rights Reserved
[2017-07-03] MEDS: DOCUSATE SODIUM 100 MG CAPSULE PO SCH ×2 (10:14→17:33)
[2017-07-03] MEDS: NORMAL SALINE 10 ML SDV (SCHEDULED) IV SCH ×2 (10:18→21:41)
[2017-07-03] MEDS: NICOTINE 21 MG/24 HR PATCH.TD24 TD SCH (10:18)
[2017-07-03] MEDS: KETOROLAC TROMETHAMINE 10 MG TABLET PO PRN ×2 (12:36→20:16)
[2017-07-03] MEDS ORDERED: (PENDING PHARMACY ID) (Oxcarbazepine [Trileptal] 300 MG) PO PRN (14:29)
[2017-07-03] MEDS ORDERED: BACLOFEN 20 MG TABLET PO PRN (14:29)
--- NOTE | 2017-07-03 14:37 | OPERATIVE REPORT E ---
Operative Report NAME: KATHLEEN HARDING : 1970 AGE: 46Y DATE OF SURGERY: 07/02/2017 ROOM: 212 PREOPERATIVE DIAGNOSIS: Anterior abdominal wall abscess. POSTOPERATIVE DIAGNOSIS: Anterior abdominal wall abscess. PROCEDURE: 1. Complex anterior abdominal wall skin abscess debridement to fascia. 2. Wound VAC placement. SURGEON: KHANH TENA M.D. PROSTHETIC LAB TECHNICIAN: None. BLEEDIN mL. COMPLICATIONS: None. ANESTHESIA: General. FLUIDS: 1000. URINE OUTPUT: 150. DRAINS: Wound VAC placed. INDICATION AND FINDINGS: This is a 60-year-old white female who underwent an incisional ventral hernia repair with permanent mesh in March 2010. The patient reports that starting yesterday she has been experiencing severe abdominal pain. She came to the hospital and CT scan of abdomen and pelvis was done that revealed the presence of a large subcutaneous fat along the midline at the level of the umbilicus with fluid and gas bubbles measuring 10 cm in diameter. In addition , the patient was debridement of the abscess. DESCRIPTION OF PROCEDURE: The procedure was done in the operating room. Patient placed in supine position. General anesthesia was induced by endotracheal intubation. Guerra catheter was inserted. Abdomen was prepped and draped in the usual fashion. A small pinpoint was identified along the midline just at the level of the umbilicus. was inserted and with Bovie the midline surgical scar was incised. A large amount of foul smelling fluid was obtained. This was sent for culture, aerobic, anaerobic, and Gram stain as well as final culture. Once the cavity was fully opened in the vertical direction, it was found to be about 15 cm in size. A decision was made to excise completely the entire abscess cavity by incising the skin circumferentially and divided the subcutaneous fat about 2 cm away from the inner wall of the abscess. This was done circumferentially as well as inferiorly with abscess cavity . A small amount of abscess cavity wall was . This was found to be against mesh and because of the possibility the mesh could be cavity could be entered, this fissure was left in place and debrided gently with curette. Hemostasis was obtained with Bovie. The large cavity was then adhered with 2 L of normal saline which . The hemostasis was controlled. The area was then packed initially with large pieces of elastic for large wound VAC sponge. vacuum cap of the connected to the device with pressure and no leaks noted. The patient tolerated the procedure well, extubated and transferred to the recovery room in satisfactory condition. DICTATING PHYSICIAN: KHANH TENA M.D. [id number] PHY#: [id number] ID: [id number] JOB#: [id number] ACCT: [id number] cc:KHANH TENA M.D. >
[2017-07-03] MEDS ORDERED: OXCARBAZEPINE 150 MG TABLET PO PRN (15:12)
[2017-07-03] MEDS ORDERED: INSULIN REGULAR HUMAN SQ SCH (16:00)
[2017-07-03] MEDS ORDERED: METFORMIN HCL 500 MG TABLET PO SCH (16:00)
[2017-07-03] MEDS ORDERED: INSULIN REG, HUMAN 100 UNIT/ML 3 ML VIAL (PYX) SUBCUT SCH (16:00)
[2017-07-03] MEDS: FUROSEMIDE 40 MG TABLET PO SCH (18:12)
[2017-07-03] MEDS ORDERED: METFORMIN HCL 500 MG TABLET PO ONE (18:30)
--- NOTE | 2017-07-03 18:58 | PROGRESS NOTE E ---
Progress Note NAME: KATHLEEN HARDING : 1970 AGE: 46Y DATE: 07/03/2017 ROOM: 212 SUBJECTIVE: The patient is currently lying in bed. She states that she is quite sore from her procedure yesterday and the patient denies any nausea, vomiting, diarrhea. No shortness of breath, dizziness, chest pain. No fevers, chills. The patient has been afebrile. Her blood pressure has been in a good range. The patient did not voice any other concerns at this time. REVIEW OF SYSTEMS: The rest of the review of systems negative. MEDICATIONS: Have been reviewed. OBJECTIVE: GENERAL: The patient is a 46-year-old female who is awake, alert, and oriented to person, time, place, situation. She is verbal, conversational. Does not appear to be in any acute distress. VITAL SIGNS: Temperature is 98.0, pulse 84, respirations 16, blood pressure is 106/60, oxygen saturation is 95% on room air. SKIN: Warm and dry. No rash. She is not diaphoretic. HEENT: Pupils, equal, round and reactive to light and accommodation. Conjunctivae are pink. NECK: No evidence of JVP. CARDIOVASCULAR: Heart is regular. There is no murmur or rub. CHEST: Clear, symmetrical, unlabored. ABDOMEN: Soft, nontender, nondistended. Wound VAC in place. BACK: No CVA tenderness, sacral edema. EXTREMITIES: No clubbing, cyanosis, or edema. PSYCHIATRIC: Appropriate affect and pleasant mood. DIAGNOSTICS: Lab values are as follows, hematology obtained on 07/03/2017; WBC is 8.6, hemoglobin is 11.6, hematocrit is 35.0, platelet count is 218,000. Chemistry obtained on 07/03/2017; sodium is 136, potassium is 4.8, chloride is 103, carbon dioxide 23, BUN 13, creatinine is 0.67, glucose 193, calcium is 9.0. IMPRESSION AND PLAN: 1. HYPERTENSION. The patient's blood pressure has been in acceptable range. Will continue her medications. 2. DIABETES MELLITUS TYPE 2. The patient is quite insulin resistant. Will resume the patient's home medications with additional sliding scale coverage and follow. 3. I AND D OF THE ABDOMINAL WALL ABSCESS. Will continue with wound VAC, antibiotics, management as per surgery. 4. CHRONIC PAIN. Will continue the patient's home medications. CODE STATUS: The patient is a full code. DISPOSITION: Depending on the patient's symptomatology and diagnostic findings will reevaluate in the a.m. TIME SPENT: On this follow up, including assessment and plan, physical examination, patient education, review of records; 25 minutes. DICTATING PHYSICIAN: DANNY GALEANA NP [id number] PHY#: [id number] ID: [id number] JOB#: [id number] ACCT: [id number] cc: >
[2017-07-03] MEDS ORDERED: NORMAL SALINE 1000 ML 1,000 ML IV PRN ×2 (19:21→22:34)
[2017-07-03] MEDS: PREGABALIN 100 MG CAPSULE PO SCH (21:39)
[2017-07-03] MEDS ORDERED: ATORVASTATIN CALCIUM 20 MG TABLET PO SCH (22:00)
[2017-07-03] MEDS ORDERED: FLUCONAZOLE 200 MG/NS RTU 100 ML IV SCH (23:00)
[2017-07-04] MEDS: METRONIDAZOLE 500 MG/NS RTU 100 ML IV SCH ×3 (02:19→17:14)
[2017-07-04] MEDS: PIPERACILLIN SODIUM/TAZOBACTAM 4.5 GM in NORMAL SALINE 100 ML IV SCH ×3 (03:25→15:22)
[2017-07-04] MEDS: NORMAL SALINE 10 ML SDV (AFTER EACH USE) IV PRN ×3 (05:50→18:09)
[2017-07-04] MEDS ORDERED: LANSOPRAZOLE 30 MG TAB.RAP.DR PO SCH (06:00)
[2017-07-04] MEDS: ENOXAPARIN SODIUM INJ 40 MG/0.4 ML DISP.SYRIN SUBCUT SCH (06:07)
[2017-07-04] MEDS: VANCOMYCIN HCL 1,500 MG in DEXTROSE 5%-WATER 250 ML IV SCH ×2 (06:09→17:19)
[2017-07-04 06:15] LABS: ABSOLUTE BASOPHILS # (AUTO) 0.1 10^3/uL (0.0-0.2); ABSOLUTE EOSINOPHILS # (AUTO) 0.1 10^3/uL (0.0-0.6); ABSOLUTE LYMPHOCYTES (AUTO) 1.5 10^3/uL (0.5-4.7); ABSOLUTE MONOCYTES (AUTO) 0.7 10^3/uL (0.1-1.4); ABSOLUTE NEUT (AUTO) 4.6 10^3/uL (1.7-8.2); BASOPHILS % (AUTO) 0.9 % (0-2); EOSINOPHILS % (AUTO) 1.3 % (0-6); HEMOGLOBIN 10.6 g/dL (12.0-15.5); LYMPHOCYTES % (AUTO) 21.6 % (13-45); MEAN CORPUSCULAR HEMOGLOBIN 26.6 pg (27.0-33.4); MEAN CORPUSCULAR HGB CONC 33.3 g/dL (32.0-36.0); MEAN CORPUSCULAR VOLUME 80 fl (80-97); MONOCYTES % (AUTO) 9.8 % (3-13); PLATELET COUNT 191 10^3/uL (150-450); RED BLOOD COUNT 4.01 10^6/uL (3.72-5.28); SEGMENTED NEUTROPHILS % (AUTO) 66.4 % (42-78); TOTAL CELLS COUNTED % (AUTO) 100 %; WHITE BLOOD COUNT 6.9 10^3/uL (4.0-10.5)
[2017-07-04] MEDS: KETOROLAC TROMETHAMINE 10 MG TABLET PO PRN (06:15)
[2017-07-04 07:01] LABS: ANION GAP 7 (5-19); BLOOD UREA NITROGEN 15 mg/dL (7-20); CALCIUM 8.7 mg/dL (8.4-10.2); CARBON DIOXIDE 26 mmol/L (22-30); CHLORIDE 105 mmol/L (98-107); GLUCOSE 91 mg/dL (75-110); SODIUM 138.1 mmol/L (137-145)
[2017-07-04 07:06] LABS: VANCOMYCIN,TROUGH 12.7 ug/mL (5.0-20.0)
[2017-07-04] MEDS ORDERED: (PENDING PHARMACY ID) (Metformin Hcl [Glucophage Xr 500 Mg Tablet] 500 MG) PO SCH (08:00)
[2017-07-04] MEDS ORDERED: INSULIN REG, HUMAN 100 UNIT/ML 3 ML VIAL (PYX) SUBCUT SCH ×2 (08:00→11:00)
[2017-07-04] MEDS ORDERED: INSULIN REGULAR HUMAN 60 UNIT SQ SCH (08:00)
[2017-07-04] MEDS: METFORMIN HCL 500 MG TABLET PO SCH ×2 (09:05→16:56)
[2017-07-04] MEDS: INSULIN REG, HUMAN 100 UNIT/ML 3 ML VIAL (PYX) SUBCUT SCH ×3 (09:08→16:59)
[2017-07-04] MEDS ORDERED: VENLAFAXINE HCL 100 MG PO SCH (10:00)
[2017-07-04] MEDS ORDERED: ARIPIPRAZOLE 5 MG TABLET PO SCH (10:00)
[2017-07-04] MEDS ORDERED: VENLAFAXINE HCL 25 MG TABLET PO SCH (10:00)
[2017-07-04] MEDS ORDERED: FENOFIBRATE NANOCRYSTALLIZED 145 MG TABLET PO SCH (10:00)
[2017-07-04] MEDS ORDERED: FLUTICASONE NASAL SPRAY 50 MCG/SPRY 120 SPRAY/16 GM NASL SCH (10:00)
[2017-07-04] MEDS ORDERED: LISINOPRIL 10 MG TABLET PO SCH (10:00)
[2017-07-04] MEDS ORDERED: (PENDING PHARMACY ID) (Aripiprazole [Abilify] 20 MG) PO SCH (10:00)
[2017-07-04] MEDS: DOCUSATE SODIUM 100 MG CAPSULE PO SCH ×2 (10:58→17:13)
[2017-07-04] MEDS ORDERED: INSULIN REGULAR HUMAN SQ SCH (11:00)
[2017-07-04] MEDS: FUROSEMIDE 40 MG TABLET PO SCH ×2 (11:01→17:11)
[2017-07-04] MEDS: PREGABALIN 100 MG CAPSULE PO SCH (11:05)
[2017-07-04] MEDS: NICOTINE 21 MG/24 HR PATCH.TD24 TD SCH (11:12)
[2017-07-04] MEDS: NORMAL SALINE 10 ML SDV (SCHEDULED) IV SCH (11:15)
[2017-07-04 12:13] VITALS: BP 126/67
--- NOTE | 2017-07-04 18:04 | PDOC PROGRESS REPORT ---
Subjective Progress Note for:: 07/04/17 Subjective:: She is admitted with infection of the abdominal wall. She states she is doing better and she is waiting for discharge home Reason For Visit: ABDOMINAL ABSCESS,HERNIA REPAIR, WOUND VAC Physical Exam Vital Signs: Temp Pulse Resp BP Pulse Ox 98.1 F 86 16 126/67 H 100 07/04/17 14:12 07/04/17 14:12 07/04/17 14:12 07/04/17 14:12 07/04/17 14:12 Intake & Output 07/03/17 07/04/17 07/05/17 06:59 06:59 06:59 Intake Total 4550 2018 Output Total 4190 1999 200 Balance 360 18 -200 Weight 145.6 kg 142.5 kg GI/Abdominal exam: PRESENT: other - obese, wound vac in place Results Laboratory Results: 07/04/17 05:50 07/04/17 05:50 07/04/17 07/04/17 07/04/17 05:50 05:50 05:50 WBC 6.9 RBC 4.01 Hgb 10.6 L Hct 32.0 L MCV 80 MCH 26.6 L MCHC 33.3 RDW 16.0 H Plt Count 191 Seg Neutrophils % 66.4 Lymphocytes % 21.6 Monocytes % 9.8 Eosinophils % 1.3 Basophils % 0.9 Absolute Neutrophils 4.6 Absolute Lymphocytes 1.5 Absolute Monocytes 0.7 Absolute Eosinophils 0.1 Absolute Basophils 0.1 Sodium 138.1 Potassium 4.0 Chloride 105 Carbon Dioxide 26 Anion Gap 7 BUN 15 Creatinine 0.75 0.75 Est GFR ( Amer) > 60 > 60 Est GFR (Non-Af Amer) > 60 > 60 Glucose 91 Calcium 8.7 07/02/17 18:32 Catheterized Urine Urine Culture - Final NO GROWTH 2 DAYS Impressions: Abdomen/Pelvis CT 07/02/17 12:27 IMPRESSION: Abscess in the anterior abdominal wall fat from the skin down to the abdominal wall hernia repair. Mesh is intact. Guidance Fluoroscopy 07/03/17 00:00 IMPRESSION: SUCCESSFUL PLACEMENT OF A 5 FR DUAL LUMEN 43 CM PICC IN THE LEFT BASILIC VEIN. Interventional Vascular Procedure 07/03/17 00:00 IMPRESSION: SUCCESSFUL PLACEMENT OF A 5 FR DUAL LUMEN 43 CM PICC IN THE LEFT BASILIC VEIN. PICC Line Insertion 07/03/17 07:00 IMPRESSION: SUCCESSFUL PLACEMENT OF A 5 FR DUAL LUMEN 43 CM PICC IN THE LEFT BASILIC VEIN. Assessment & Plan - Time Time Spent with patient: 15-24 minutes Anticipated discharge: Home with Homehealth - Plan Summary Plan Summary: Hypertension stable we will continue her current medications I&D of the abdominal wall abscess currently with a wound VAC it appears she is growing MRSA and patient is currently on vancomycin Morbid obesity chronic Chronic pain syndrome Type 2 diabetes mellitus
--- NOTE | 2017-07-04 19:18 | DISCHARGE SUMMARY E ---
Discharge Summary NAME: KATHLEEN HARDING : 1970 AGE: 46Y ADMITTED: 07/02/2017 DISCHARGED: 07/04/2017 REASON FOR ADMISSION: Abdominal wall abscess. HISTORY OF PRESENTING ILLNESS: The patient is a 46-year-old, obese, white female with abdominal wall abscess; she is brought to the hospital from the [facility] where she underwent CT scan of the abdomen and pelvis which shows a large soft tissue abscess to the right of midline. She is admitted directly to surgical service for definitive management. SUMMARY OF HOSPITALIZATION: The patient was admitted to the surgical service, taken to the operating room by Dr. Doty where she had an abdominal wall abscess debrided. The wound was packed open and a wound VAC inserted. Cultures grew MRSA. The patient was maintained on IV vancomycin, Zosyn, Flagyl, and Diflucan for several days. She had a PICC line placed by radiology service, started on 07/03/2017. By the afternoon of 07/04/2017 arrangements had been made for outpatient intravenous antibiotics and wound VAC care. FINAL DIAGNOSIS: MRSA soft tissue infection, status post operative debridement of the abdominal wall with wound VAC placement. DISPOSITION: The patient is discharged home in the care of her family. [facility] up with [facility] next week; home health arrangements have been made for wound VAC care, and intravenous vancomycin 1 gram IV q.12 hours via left upper extremity PICC line. DICTATING PHYSICIAN: ARI VALERIO M.D. [id number] [id number] PHY#: [id number] ID: [id number] JOB#: [id number] ACCT: [id number] cc:ARI VALERIO M.D. >
== END 2017-07-04 18:20 | disposition home health service (06) | DRG 857 ==
LOC: RAD 12:18 → EDSTATUS 15:47 → 2N 15:55
PROVIDERS: ADMIT Surgery; ATTEND Surgery
PROC: 02HV33Z Insertion of Infusion Device into Superior Vena Cava, Percutaneous Approach (ICD-10-PCS; 2017-07-02)
PROC: B5181ZA Fluoroscopy of Superior Vena Cava using Low Osmolar Contrast, Guidance (ICD-10-PCS; 2017-07-02)
PROC: 0JB80ZZ Excision of Abdomen Subcutaneous Tissue and Fascia, Open Approach (ICD-10-PCS; principal; 2017-07-02 17:00)
DX: T81.4XXA Infection following a procedure, initial encounter (principal); L02.211 Cutaneous abscess of abdominal wall; Z68.43 Body mass index [BMI] 50.0-59.9, adult; B95.62 Methicillin resistant Staphylococcus aureus infection as the cause of diseases classified elsewhere; Y83.8 Other surgical procedures as the cause of abnormal reaction of the patient, or of later complication, without mention of misadventure at the time of the procedure; E11.9 Type 2 diabetes mellitus without complications; J45.909 Unspecified asthma, uncomplicated; M19.90 Unspecified osteoarthritis, unspecified site; F41.9 Anxiety disorder, unspecified; F32.9 Major depressive disorder, single episode, unspecified; E66.01 Morbid (severe) obesity due to excess calories; E78.5 Hyperlipidemia, unspecified; I10 Essential (primary) hypertension; G89.29 Other chronic pain; F17.200 Nicotine dependence, unspecified, uncomplicated; Z79.899 Other long term (current) drug therapy; Z79.4 Long term (current) use of insulin; Z88.8 Allergy status to other drugs, medicaments and biological substances; Z86.14 Personal history of Methicillin resistant Staphylococcus aureus infection; Z82.49 Family history of ischemic heart disease and other diseases of the circulatory system; Z82.3 Family history of stroke; Z83.3 Family history of diabetes mellitus; Z87.11 Personal history of peptic ulcer disease
CPT/HCPCS: 00800; 36415; 36569; 74177; 76937; 77001; 80048; 80053; 80202; 82565; 82962; 85025; 85610; 85730; 87040; 87070; 87075; 87077; 87086; 87088; 87101; 87186; 87205; 88304; G8978-GP; G8979-GP; J0330; J1170; J1450; J1642; J1650; J1815; J2250; J2405; J2543; J2704; J3010; J3370; J3490; J7030; J7060

== ENCOUNTER → 2017-08-11 | Outpatient (CLI) | payer MEDICARE, MEDICAID ==
--- NOTE | 2017-08-11 16:33 | RADIOLOGY REPORT (SQ) ---
EXAM DESCRIPTION: CT ABD/PELVIS WITH IV ORAL COMPLETED DATE/TIME: 08/11/2017 2:01 pm REASON FOR STUDY: DISRUPTION OF INTERNAL OPERATION,SURGICAL WOUND T81.32XA DISRUPTION OF INTERNAL OPERATION (SURGICAL) WOUND, COMPARISON: CT abdomen pelvis 01/09/2017, 01/10/2017, 03/18/2017, 07/02/2017 TECHNIQUE: CT scan of the abdomen and pelvis performed using helical scanning technique with dynamic intravenous contrast injection. Patient drank oral contrast. Images reviewed with lung, soft tissue , and bone windows. Reconstructed coronal and sagittal MPR images reviewed. Delayed images for evalua tion of the urinary system also acquired. All images stored on PACS. All CT scanners at this facility use dose modulation, iterative reconstruction, and/or weight based d osing when appropriate to reduce radiation dose to as low as reasonably achievable (ALARA). [facility]: Dose Right [facility]: CareDose [facility]: Dose Right [facility]: Teradose 4D [facility]: Swogo CONTRAST TYPE AND DOSE: contrast/concentration: Isovue 370.00 mg/ml; Total Contrast Delivered: 100.0 ml; Total Saline Delivered: 72.0 ml RENAL FUNCTION: Creatinine 0.51 RADIATION DOSE: CT Rad equipment meets quality standard of care and radiation dose reduction techniq ues were employed. CTDIvol: 26.6 - 31.6 mGy. DLP: 3359 mGy-cm.. LIMITATIONS: None. FINDINGS: An intact anterior abdominal wall hernia repair is present along the periumbilical region. No protrusion of abdominal wall contents through the hernia. Patient has a wound VAC present on th e skin with stranding in the subcutaneous fat. No well-circumscribed fluid collection worrisome for abscess. Overall, the appearance of the anterior abdominal wall is improved compared to 07/02/2017 CT exam. LOWER CHEST: Very heavily calcified coronary arteries on images 1-4. Lung bases are clear. LIVER: Normal size. No masses. No dilated ducts. SPLEEN: Normal size. No focal lesions. PANCREAS: No masses. No significant calcifications. No adjacent inflammation or peripancreatic fluid collections. Pancreatic duct not dilated. GALLBLADDER: No identified stones by CT criteria. No inflammatory changes to suggest cholecystitis. ADRENAL GLANDS: No significant masses or asymmetry. RIGHT KIDNEY AND URETER: No solid masses. No significant calcifications. No hydronephrosis or hyd roureter. LEFT KIDNEY AND URETER: No solid masses. No significant calcifications. No hydronephrosis or hydr oureter. AORTA AND VESSELS: No aneurysm. No dissection. Renal arteries, SMA, celiac without stenosis. RETROPERITONEUM: No retroperitoneal adenopathy, hemorrhage or masses. BOWEL AND PERITONEAL CAVITY: No masses or inflammatory changes. No free fluid or peritoneal masses. APPENDIX: Normal. PELVIS: No mass. No free fluid. Normal bladder. ABDOMINAL WALL: As above BONES: No significant or acute findings. OTHER: No other significant finding. IMPRESSION: Intact anterior abdominal wall hernia repair Wound VAC over the anterior abdominal wall periumbilical region with decrease in anterior abdominal w all fatty inflammatory change compared to CT exam 07/02/2017. No abscess is identified in the anterior abdominal wall today TECHNICAL DOCUMENTATION: JOB ID: [id number] Quality ID # [id number]: Final reports with documentation of one or more dose reduction techniques (e.g., Au tomated exposure control, adjustment of the mA and/or kV according to patient size, use of iterative reconstruction technique) 2010 [employer]- All Rights Reserved Reading location - IP/workstation name: [facility]
== END ==
LOC: RAD 13:07
PROVIDERS: ATTEND Nurse Practitioner
DX: T81.32XA Disruption of internal operation (surgical) wound, not elsewhere classified, initial encounter (principal)
CPT/HCPCS: 74177

== ENCOUNTER 2017-11-02 11:01 | Emergency (ER) | payer MEDICARE, MEDICAID ==
[2017-11-02 11:40] LABS: ABSOLUTE BASOPHILS # (AUTO) 0.1 10^3/uL (0.0-0.2); ABSOLUTE EOSINOPHILS # (AUTO) 0.1 10^3/uL (0.0-0.6); ABSOLUTE MONOCYTES (AUTO) 0.4 10^3/uL (0.1-1.4); ABSOLUTE NEUT (AUTO) 4.2 10^3/uL (1.7-8.2); BASOPHILS % (AUTO) 0.9 % (0-2); EOSINOPHILS % (AUTO) 1.9 % (0-6); HEMATOCRIT 46.9 % (36.0-47.0); HEMOGLOBIN 15.5 g/dL (12.0-15.5); LYMPHOCYTES % (AUTO) 29.5 % (13-45); MEAN CORPUSCULAR HEMOGLOBIN 25.6 pg (27.0-33.4); MEAN CORPUSCULAR VOLUME 78 fl (80-97); MONOCYTES % (AUTO) 6.3 % (3-13); PLATELET COUNT 194 10^3/uL (150-450); RED BLOOD COUNT 6.06 10^6/uL (3.72-5.28); RED CELL DISTRIBUTION WIDTH 17.4 % (11.5-14.0); SEGMENTED NEUTROPHILS % (AUTO) 61.4 % (42-78); TOTAL CELLS COUNTED % (AUTO) 100 %; WHITE BLOOD COUNT 6.9 10^3/uL (4.0-10.5)
[2017-11-02 11:51] LABS: APPEARANCE,URINE CLEAR; BILIRUBIN,URINE NEGATIVE (NEGATIVE); COLOR,URINE STRAW; GLUCOSE, URINE NEGATIVE (NEGATIVE); KETONES,URINE NEGATIVE (NEGATIVE); LEUKOCYTE ESTERASE,URINE NEGATIVE (NEGATIVE); NITRITE,URINE NEGATIVE (NEGATIVE); PROTEIN,URINE NEGATIVE (NEGATIVE); URINE SPECIFIC GRAVITY 1.004; UROBILINOGEN,URINE NEGATIVE mg/dL (<2.0)
[2017-11-02 12:02] LABS: ALANINE AMINOTRANSFERASE 32 U/L (9-52); ALBUMIN 4.8 g/dL (3.5-5.0); ALKALINE PHOSPHATASE 48 U/L (38-126); ANION GAP 12 (5-19); ASPARTATE AMINO TRANSFERASE 23 U/L (14-36); BILIRUBIN,DIRECT 0.4 mg/dL (0.0-0.4); BILIRUBIN,TOTAL 0.5 mg/dL (0.2-1.3); BLOOD UREA NITROGEN 19 mg/dL (7-20); CALCIUM 10.2 mg/dL (8.4-10.2); CARBON DIOXIDE 29 mmol/L (22-30); CHLORIDE 104 mmol/L (98-107); CREATINE KINASE 71 U/L (30-135); GLUCOSE 171 mg/dL (75-110); POTASSIUM 5.2 mmol/L (3.6-5.0); SODIUM 144.7 mmol/L (137-145); TOTAL PROTEIN 7.9 g/dL (6.3-8.2)
[2017-11-02 12:14] LABS: CREATINE KINASE MB 0.91 ng/mL (<4.55)
[2017-11-02 12:16] LABS: TROPONIN I < 0.012 ng/mL
--- NOTE | 2017-11-02 13:19 | RADIOLOGY REPORT (SQ) ---
EXAM DESCRIPTION: CHEST SINGLE VIEW COMPLETED DATE/TIME: 11/02/2017 12:07 pm REASON FOR STUDY: bed 2 db COMPARISON: June 2017 EXAM PARAMETERS: NUMBER OF VIEWS: One view. TECHNIQUE: Single frontal radiographic view of the chest acquired. RADIATION DOSE: NA LIMITATIONS: Patient has made a shallow inspiration. FINDINGS: LUNGS AND PLEURA: No opacities, masses or pneumothorax. No pleural effusion. MEDIASTINUM AND HILAR STRUCTURES: No masses. Contour normal. HEART AND VASCULAR STRUCTURES: Heart normal in size. Normal vasculature. BONES: No acute findings. HARDWARE: None in the chest. OTHER: PICC line is no longer identified. IMPRESSION: NO ACUTE RADIOGRAPHIC FINDING IN THE CHEST. TECHNICAL DOCUMENTATION: JOB ID: [id number] [employer]- All Rights Reserved Reading location - IP/workstation name: [email or web address]
--- NOTE | 2017-11-02 14:50 | ER Document Report ---
ED Respiratory Problem - General Chief Complaint: Shortness Of Breath Stated Complaint: DIFFICULTY BREATHING Time Seen by Provider: 11/02/17 11:46 Mode of Arrival: Ambulatory Information source: Patient Notes: Chief complaint: Shortness of breath History of complain: 47 years old female presents today with shortness of breath for the last 2 days particularly woke up this morning with some chest pain over the midsternum therefore present to the ED. The pain has somewhat subsided now. It was not radiating not associated with any left arm numbness tingling sensation nausea vomiting palpitation or diaphoresis. Onset: Gradual Duration: Improved Severity: Moderate Quality: dull unknown Context: Exacerbating factor and relieving factors: REVIEW OF SYSTEMS: CONSTITUTIONAL : Denies fever, chills, or sweats. Denies recent illness. EENT: Denies eye, ear, throat, or mouth pain or symptoms. Denies nasal or sinus congestion or discharge. Denies throat, tongue, or mouth swelling or difficulty swallowing. CARDIOVASCULAR: Denies chest pain. Denies palpitations or racing or irregular heart beat. Denies ankle edema. RESPIRATORY: Denies cough, cold, or chest congestion. Denies shortness of breath, difficulty breathing, or wheezing. GASTROINTESTINAL: Denies abdominal pain or distention. Denies nausea, vomiting , or diarrhea. Denies blood in vomitus, stools, or per rectum. Denies black, tarry stools. Denies constipation. GENITOURINARY: Denies difficulty urinating, painful urination, burning, frequency, blood in urine, or discharge. MUSCULOSKELETAL: Denies back or neck pain or stiffness. Denies joint pain or swelling. SKIN: Denies rash, lesions or sores. HEMATOLOGIC : Denies easy bruising or bleeding. LYMPHATIC: Denies swollen, enlarged glands. NEUROLOGICAL: Denies confusion or altered mental status. Denies passing out or loss of consciousness. Denies dizziness or lightheadedness. Denies headache. Denies weakness or paralysis or loss of use of either side. Denies problems with gait or speech. Denies sensory loss, numbness, or tingling. Denies seizures. PSYCHIATRIC: Denies anxiety or stress. Denies depression, suicidal ideation, or homicidal ideation. ALL OTHER SYSTEMS REVIEWED AND NEGATIVE. Dictation was performed using [employer] voice recognition software PHYSICAL EXAMINATION: GENERAL: Well-appearing, well-nourished and in no acute distress. HEAD: Atraumatic, normocephalic. EYES: Pupils equal round and reactive to light, extraocular movements intact, sclera anicteric, conjunctiva are normal. ENT: Nares patent, oropharynx clear without exudates. Moist mucous membranes. NECK: Normal range of motion, supple without lymphadenopathy LUNGS: Breath sounds .... No wheezes rales or rhonchi. HEART: Regular rate and rhythm without murmurs ABDOMEN: Soft, nontender, nondistended abdomen. No guarding, no rebound. No masses appreciated. Musculoskeletal: Normal range of motion, no pitting or edema. No cyanosis. NEUROLOGICAL: Cranial nerves grossly intact. Normal speech, normal gait. Normal sensory, motor exams PSYCH: Normal mood, normal affect. SKIN: Warm, Dry, normal turgor, no rashes or lesions noted. TRAVEL OUTSIDE OF THE [place] IN LAST 30 DAYS: No - HPI Severity: Moderate Pain Level: 2 Short of Breath: Moderate - Related Data Allergies/Adverse Reactions: brompheniramine [From Lodrane D] Allergy (Verified 11/02/17 11:38) clotrimazole [From Mycelex] Allergy (Verified 11/02/17 11:38) gabapentin Allergy (Verified 11/02/17 11:38) hydroxyzine Allergy (Verified 11/02/17 11:38) pseudoephedrine [From Lodrane D] Allergy (Verified 11/02/17 11:38) Past Medical History - General Information source: Patient - Social History Smoking Status: Current Every Day Smoker Chew tobacco use (# tins/day): No Frequency of alcohol use: None Drug Abuse: None Family History: Arthritis, CAD, CVA, DM, Hyperlipidemia, Hypertension, Malignancy, Thyroid Disfunction Patient has suicidal ideation: No Patient has homicidal ideation: No - Past Medical History Cardiac Medical History: Reports: Hx Coronary Artery Disease, Hx Hypercholesterolemia, Hx Hypertension Denies: Hx Atrial Fibrillation, Hx Congestive Heart Failure, Hx Heart Attack , Hx Peripheral Vascular Disease, Hx Pulmonary Embolism, Hx Heart Murmur Pulmonary Medical History: Reports: Hx Asthma, Hx Bronchitis Denies: Hx COPD, Hx Pneumonia, Hx Respiratory Failure, Hx Sleep Apnea, Hx Tuberculosis Neurological Medical History: Denies: Hx Seizures Endocrine Medical History: Reports: Hx Diabetes Mellitus Type 2. Denies: Hx Graves' Disease, Hx Hyperthyroidism, Hx Hypothyroidism Renal/ Medical History: Reports: Hx Kidney Stones. Denies: Hx End Stage Renal Disease, Hx Ovarian Cysts, Hx Peritoneal Dialysis, Hx Pelvic Inflammatory Disease Malignancy Medical History: Denies: Hx Breast Cancer, Hx Cervical Cancer, Hx Leukemia, Hx Lung Cancer, Hx Ovarian Cancer GI Medical History: Reports: Hx Ulcer. Denies: Hx Cirrhosis, Hx Crohn's Disease , Hx Gastroesophageal Reflux Disease, Hx Hiatal Hernia, Hx Irritable Bowel, Hx Liver Failure, Hx Pancreatitis Musculoskeltal Medical History: Reports Hx Arthritis, Denies Hx Fibromyalgia, Denies Hx Multiple Sclerosis, Denies Hx Muscular Dystrophy Skin Medical History: Reports Hx MRSA Psychiatric Medical History: Reports: Hx Bipolar Disorder, Hx Depression Denies: Hx Dementia, Hx Post Traumatic Stress Disorder, Hx Schizophrenia Traumatic Medical History: Denies: Hx Fractures Infectious Medical History: Reports: Hx MRSA. Denies: Hx HIV Past Surgical History: Reports: Other - Ventral/umbilical hernia repair with mesh 5 years ago in [place]. Denies: Hx Appendectomy, Hx Bowel Surgery, Hx Section, Hx Cholecystectomy, Hx Colostomy, Hx Coronary Artery Bypass Graft, Hx Gastric Bypass Surgery, Hx Herniorrhaphy, Hx Hysterectomy, Hx Mastectomy, Hx Pacemaker, Hx Tonsillectomy, Hx Tubal Ligation - Immunizations Immunizations up to date: Yes Hx Pneumococcal Vaccination: 05/11/16 Review of Systems - Review of Systems Notes: Dictated Physical Exam - Vital signs Vitals: Pulse Ox 95 11/02/17 11:20 - Notes Notes: Dictated Course - Re-evaluation Re-evalutation: 11/02/17 17:17 2 sets of enzymes came back negative patient did not have any chest pain or shortness of breath - Vital Signs Vital signs: Temp Pulse Resp BP Pulse Ox 97.4 F 16 114/64 95 11/02/17 14:00 11/02/17 16:32 11/02/17 15:36 11/02/17 16:32 - Laboratory Result Diagrams: 11/02/17 11:20 11/02/17 11:20 Laboratory results interpreted by me: 11/02/17 11/02/17 11:20 11:20 RBC 6.06 H MCV 78 L MCH 25.6 L RDW 17.4 H Potassium 5.2 H Glucose 171 H - EKG Interpretation by Pa EKG shows normal: Sinus rhythm Rate: Normal Rhythm: NSR - Sinus rhythm at the rate of 68 bpm normal axis no acute ST elevation ST depression T-wave inversion noted. Discharge - Discharge Clinical Impression: Chest wall pain Condition: Fair Disposition: HOME, SELF-CARE Instructions: Chest Wall Pain ([facility]) Referrals: CLIVE LYNN, [facility] [ALLIED HEALTH PROFESSIONAL] - Follow up as needed
[2017-11-02 17:37] VITALS: BP 121/79
--- NOTE | 2017-11-03 08:00 | EKG REPORT ---
SEVERITY:- NORMAL ECG - SINUS RHYTHM : Confirmed by: Amanda Wahl MD 03-Nov-2017 07:59:47
== END 2017-11-02 17:37 | disposition home or self-care (01) ==
LOC: ER 11:01
DX: R07.89 Other chest pain (principal); J45.909 Unspecified asthma, uncomplicated; R06.02 Shortness of breath; F17.200 Nicotine dependence, unspecified, uncomplicated; I25.10 Atherosclerotic heart disease of native coronary artery without angina pectoris; I10 Essential (primary) hypertension; E11.9 Type 2 diabetes mellitus without complications; Z88.3 Allergy status to other anti-infective agents; Z88.8 Allergy status to other drugs, medicaments and biological substances; Z82.49 Family history of ischemic heart disease and other diseases of the circulatory system
CPT/HCPCS: 36415; 71045; 80053; 81001; 82550; 82553; 84484; 85025; 93005; 93010; 99285

== ENCOUNTER → 2017-11-26 | Outpatient (CLI) | payer MEDICARE, MEDICAID ==
--- NOTE | 2017-11-26 15:00 | RADIOLOGY REPORT (SQ) ---
EXAM DESCRIPTION: CT ABD/PELVIS WITH IV ORAL COMPLETED DATE/TIME: 11/26/2017 2:24 pm REASON FOR STUDY: CUTANEOUS ABSCESS OF ABDOMINAL WALL L02.211 CUTANEOUS ABSCESS OF ABDOMINAL WALL COMPARISON: 08/11/2017 TECHNIQUE: CT scan of the abdomen and pelvis performed with intravenous and oral contrast using jacoby ranjana scanning technique with dynamic intravenous contrast injection. Images reviewed with lung, soft t issue, and bone windows. Reconstructed coronal and sagittal MPR images reviewed. Delayed images for e valuation of the urinary system also acquired. All images stored on PACS. All CT scanners at this facility use dose modulation, iterative reconstruction, and/or weight based d osing when appropriate to reduce radiation dose to as low as reasonably achievable (ALARA). [facility]: Dose Right [facility]: CareDose [facility]: Dose Right [facility]: Teradose 4D [facility]: ReTargeter CONTRAST TYPE AND DOSE: contrast/concentration: Isovue 370.00 mg/ml; Total Contrast Delivered: 100.0 ml; Total Saline Delivered: 70.0 ml RENAL FUNCTION: None required. The patient is less than 50 years old. RADIATION DOSE: CT Rad equipment meets quality standard of care and radiation dose reduction techniq ues were employed. CTDIvol: 21.1 mGy. DLP: 2336 mGy-cm. . LIMITATIONS: Study is limited somewhat due to the patient's body habitus. FINDINGS: LOWER CHEST: No significant findings. No nodules or infiltrates. LIVER: Normal size. No masses. No dilated ducts. SPLEEN: Normal size. No focal lesions. PANCREAS: No masses. No significant calcifications. No adjacent inflammation or peripancreatic fluid collections. Pancreatic duct not dilated. GALLBLADDER: No identified stones by CT criteria. No inflammatory changes to suggest cholecystitis. ADRENAL GLANDS: No significant masses or asymmetry. RIGHT KIDNEY AND URETER: No solid masses. No significant calcifications. No hydronephrosis or hyd roureter. LEFT KIDNEY AND URETER: No solid masses. No significant calcifications. No hydronephrosis or hydr oureter. AORTA AND VESSELS: No aneurysm. No dissection. Renal arteries, SMA, celiac without stenosis. RETROPERITONEUM: No retroperitoneal adenopathy, hemorrhage or masses. BOWEL AND PERITONEAL CAVITY: No obstruction. No visualized masses. No free fluid. No inflammatory ch anges or thickening of bowel wall. APPENDIX: Normal. PELVIS: The previously described intact anterior abdominal wall hernia repair is again identified. N o discrete fluid collections are identified. No subcutaneous air is identified. There is some resid ual soft tissue stranding in the subcutaneous fat especially inferiorly which may only be related to scarring however I cannot exclude some minimal inflammatory or edematous changes. The possibility of a minimal cellulitis cannot be excluded. ABDOMINAL WALL: No masses. No hernias. BONES: No significant or acute findings. OTHER: No other significant finding. IMPRESSION: No significant intra-abdominal or pelvic abnormalities were identified. The previously described intact anterior abdominal wall hernia repair is again identified. No discrete fluid collec tions are identified. No subcutaneous air is identified. There is some residual soft tissue density and stranding in the subcutaneous fat which may only be related to scarring however I cannot exclude some minimal edematous or inflammatory changes. The possibility of a minimal cellulitis cannot be e xcluded. Other findings as noted above TECHNICAL DOCUMENTATION: JOB ID: [id number] Quality ID # [id number]: Final reports with documentation of one or more dose reduction techniques (e.g., Au tomated exposure control, adjustment of the mA and/or kV according to patient size, use of iterative reconstruction technique) 2010 [employer]- All Rights Reserved Reading location - IP/workstation name: [email or web address]
== END ==
LOC: RAD 13:23
PROVIDERS: ATTEND Nurse Practitioner
DX: T81.82XA Emphysema (subcutaneous) resulting from a procedure, initial encounter (principal)
CPT/HCPCS: 74177

== ENCOUNTER 2017-12-08 12:21 | Day surgery (SDC) | payer MEDICARE, MEDICAID ==
[~2017-12-08 12:21] MED LIST changes: +BACITRACIN INJ 50,000 UNIT VIAL ONE; +BUPIVACAINE HCL 0.25 % INJ/PF (2.5 MG/1 ML) 30 ML VIAL ONE; +COLLAGENASE CLOSTRIDIUM HIST. OINT 30 GM ONE; +LIDOCAINE 0.5% INJ-PF (5 MG/ML) 50 ML SDV ONE; +LIDOCAINE 0.5% INJ-PF (5 MG/ML) 50 ML SDV SUBCUT PRN; -LIDOCAINE 2% INJ-PF (20 MG/ML) 2 ML AMPUL ONE; +NORMAL SALINE 1000 ML (RENAL PATIENTS) IV PRN; -ONDANSETRON HCL INJ/PF 4 MG/2 ML SDV ONE; +SILVER SULFADIAZINE 1% CREAM 25 GM ONE; -SUCCINYLCHOLINE CHLORIDE INJ 200 MG/10 ML VIAL ONE
[2017-12-08] MEDS ORDERED: ALBUTEROL SULFATE 0.083% NEB 2.5 MG/3 ML AMPUL NEB ONE (12:53)
[2017-12-08 14:01] LABS: HEMATOCRIT 43.8 % (36.0-47.0); HEMOGLOBIN 14.3 g/dL (12.0-15.5); MEAN CORPUSCULAR HEMOGLOBIN 25.7 pg (27.0-33.4); MEAN CORPUSCULAR HGB CONC 32.7 g/dL (32.0-36.0); MEAN CORPUSCULAR VOLUME 79 fl (80-97); PLATELET COUNT 167 10^3/uL (150-450); RED BLOOD COUNT 5.57 10^6/uL (3.72-5.28); WHITE BLOOD COUNT 7.8 10^3/uL (4.0-10.5)
[2017-12-08 14:19] LABS: ANION GAP 11 (5-19); BLOOD UREA NITROGEN 27 mg/dL (7-20); CALCIUM 9.3 mg/dL (8.4-10.2); CARBON DIOXIDE 27 mmol/L (22-30); CHLORIDE 102 mmol/L (98-107); GLUCOSE 82 mg/dL (75-110); POTASSIUM 4.7 mmol/L (3.6-5.0); SODIUM 139.6 mmol/L (137-145)
[2017-12-08] MEDS ORDERED: PROPOFOL INJ 200 MG/20 ML VIAL IV ONE (14:44)
[2017-12-08] MEDS ORDERED: FENTANYL CITRATE INJ/PF 100 MCG/2 ML AMPUL ONE (14:44)
[2017-12-08] MEDS ORDERED: MIDAZOLAM 2 MG/2 ML INJ ONE (14:44)
--- NOTE | 2017-12-08 15:02 | PDOC H&P ---
General Chief Complaint: The patient was referred across wound for wound debridement diligent care and the wound clinic has been unsuccessful in getting rid of one area of abdominal wall wound. Wound represents a scar from a hernia repair done in about March 2017. - Current Medications/Allergies Home Medications: Aripiprazole [Abilify] 20 mg PO DAILY 05/25/17 Baclofen [Baclofen 20 Mg Tablet] 20 mg PO QIDP PRN 05/25/17 Fenofibrate Nanocrystallized [Tricor 145 mg Tablet] 145 mg PO DAILY 05/25/17 Fluticasone Propionate [Flonase Nasal [place] 50 Mcg/[place] 16 gm] 2 sprays NASL DAILY 05/25/17 Furosemide [Lasix] 40 mg PO BID 05/25/17 Insulin Regular, Human [Humulin R U-500 Kwikpen] 60 unit SQ ACBRKFST 05/25/17 Insulin Regular, Human [Humulin R U-500 Kwikpen] 60 unit SQ ACSUPPER 05/25/17 Insulin Regular, Human [Humulin R U-500 Kwikpen] 60 units SQ ACLUNCH 05/25/17 Linaclotide [Linzess] 290 mcg PO DAILYP PRN 05/25/17 Lisinopril [Prinivil 40 mg Tablet] 40 mg PO DAILY 05/25/17 Metformin HCl [Glucophage XR 500 mg Tablet] 1,000 mg PO QHS 05/25/17 Metformin HCl [Glucophage XR 500 mg Tablet] 500 mg PO ACBRKFST 05/25/17 Omeprazole 40 mg PO ACBRKFST 05/25/17 Oxcarbazepine [Trileptal] 300 mg PO Q12HP PRN 05/25/17 Rosuvastatin Calcium [Crestor] 10 mg PO QHS 05/25/17 Venlafaxine HCl [Effexor] 100 mg PO QHS 05/25/17 Buspirone HCl 1 tab PO BID 12/04/17 Oxycodone Myristate [Xtampza ER] 1 tab PO BID 12/04/17 Pregabalin [Lyrica] 225 mg PO BID 12/04/17 Sitagliptin Phosphate [Januvia] 1 tab PO DAILY 12/04/17 Allergies/Adverse Reactions: brompheniramine [From Lodrane D] Allergy (Verified 12/04/17 09:34) clotrimazole [From Mycelex] Allergy (Verified 12/04/17 09:34) gabapentin Allergy (Verified 12/04/17 09:34) hydroxyzine Allergy (Verified 12/04/17 09:34) pseudoephedrine [From Lodrane D] Allergy (Verified 12/04/17 09:34) Past Medical History Cardiac Medical History: Reports: Hyperlipidema, Hypertension Denies: Atrial Fibrillation, Congestive Heart Failure, Coronary Artery Disease, Myocardial Infarction, Peripheral Vascular Disease, Pulmonary Embolism , Heart Murmur Pulmonary Medical History: Reports: Asthma, Bronchitis Denies: Chronic Obstructive Pulmonary Disease (COPD), Pneumonia, Respiratory Failure, Sleep Apnea, Tuberculosis Neurological Medical History: Denies: Seizures - only febrile Endocrine Medical History: Reports: Diabetes Mellitus Type 2 Denies: Hyperthyroidism, Hypothyroidism Renal/ Medical History: Denies: End Stage Renal Disease Malignancy Medical History: Denies: Breast Cancer, Cervical Cancer, Leukemia, Lung Cancer, Ovarian Cancer GI Medical History: Denies: Cirrhosis, Crohn's Disease, Gastroesophageal Reflux Disease, Hiatal Hernia Musculoskeltal Medical History: Reports: Arthritis - back/hips/arms/fingers/ toes Denies: Fibromyalgia Psychiatric Medical History: Reports: Bipolar Disorder, Depression Denies: Dementia, Post Traumatic Stress Disorder Hematology: Denies: Anemia, Hemophilia, Sickle Cell Disease, Bleeding Tendencies Infectious Medical History: Reports: Methicillin-Resistant Staph Aureus Denies: HIV Past Surgical History Past Surgical History: Reports: Other - Ventral/umbilical hernia repair with mesh 5 years ago in [place] Denies: Amputation, Appendectomy, Section, Cholecystectomy, Colostomy, Coronary Artery Bypass Graft, Gastric Bypass Surgery, Herniorrhaphy, Hysterectomy, Mastectomy, Pacemaker, Tonsillectomy, Tubal Ligation Family History Family History: Arthritis, CAD, CVA, DM, Hyperlipidemia, Hypertension, Malignancy, Thyroid Disfunction Parental Family History Reviewed: No Children Family History Reviewed: No Sibling(s) Family History Reviewed.: No Social History Smoking Status: Current Every Day Smoker Frequency of Alcohol Use: Rare Hx Recreational Drug Use: No Drugs: None Hx Prescription Drug Abuse: No Physical Exam Vital Signs: Temp Pulse Resp BP Pulse Ox 98.1 F 68 16 120/61 96 12/08/17 13:04 12/08/17 13:04 12/08/17 13:04 12/08/17 13:04 12/08/17 13:04 Intake & Output 12/07/17 12/08/17 12/09/17 06:59 06:59 06:59 Intake Total 0 Balance 0 Weight 136.08 kg Additional comments: Constitutional: Well-developed well-nourished lady, morbidly obese body habitus. No apparent acute distress. Eyes: Mucous membranes pink and moist, pupils equal and reactive to light. Conjunctiva normal. Cornea normal. ENT: Hearing grossly normal. External pinna normal to inspection. Teeth intact. Tongue normal to inspection. Cardiac: Heart sounds normal. Respiratory breath sounds are present bilaterally, normal. Normal respiratory effort. Abdomen: Soft, nontender. A mostly healed midline scar about 8 cm long is noted. There is a small opening to the right of it which represents an opening into a larger subcutaneous pocket.. No hernia noted. Surgical scars absent. Psychiatric: Judgment, memory, insight seem normal. Mood is pleasant and appropriate. Extremities: Upper extremities show normal range of movement. Pulses present noted to the radial arteries. Capillary refill normal. No cyanosis noted. No muscle wasting noted. Impression/Plan Plan: This patient is for debridement of facet abdominal wall wound. She understands that an opening would be left larger than before and the hope is to make it accessible to advance wound care. She is accepting of the risks benefits expected outcome and alternatives.
[2017-12-08] MEDS ORDERED: MEPERIDINE HCL/PF INJ 25 MG/1 ML DISP.SYRIN IV PRN (15:22)
[2017-12-08] MEDS ORDERED: MORPHINE SULFATE 10 MG/ML INJ IV PRN (15:22)
[2017-12-08] MEDS ORDERED: PROMETHAZINE HCL INJ 25 MG/1 ML VIAL IV PRN (15:22)
[2017-12-08] MEDS ORDERED: FENTANYL CITRATE INJ/PF 100 MCG/2 ML AMPUL IV PRN ×3 (15:22)
[2017-12-08] MEDS ORDERED: DIPHENHYDRAMINE HCL 50 MG/ML VIAL IV PRN (15:22)
--- NOTE | 2017-12-08 15:45 | Discharge Summary ---
Discharge Summary (SDC) - Discharge Final Diagnosis: #1 chronic abdominal wall wound. 2. Morbid obesity. 3. Tobacco use disorder. 4. COPD. 5. Diabetes mellitus type 2. 6. Hypertension. Date of Surgery: 12/08/17 Discharge Date: 12/08/17 Condition: Fair Treatment or Instructions: Discharge home [after recovery per ASU criteria]. Diet diabetic, as tolerated, when fully awake advance as tolerated. Activities within moderation encouraged. Follow up in wound clinic by appointment in 2-4 days. Call for appointment. Leave wounds [covered], [keep clean and dry, until wound clinic]. Hold of on school/work [until evaluation in office]. Meds per med rec. Percocet. May shower [in 48 hrs], [try to keep operated area as dry as possible]. Prescriptions: Oxycodone HCl/Acetaminophen [Percocet 5-325 mg Tablet] 1 tab PO ASDIR PRN #9 tab PRN Reason: Discharge Diet: As Tolerated Respiratory Treatments at Home: Deep Breathing/Coughing Discharge Activity: Activity As Tolerated Report the Following to Your Physician Immediately: Shortness of Breath, Unusual Bleeding
--- NOTE | 2017-12-08 16:18 | Operative Report ---
Operative Report DATE OF SURGERY: 12/08/17 PREOPERATIVE DIAGNOSIS: #1 chronic abdominal wall wound. 2. Morbid obesity. 3. Tobacco use disorder. 4. COPD. 5. Diabetes mellitus type 2. 6. Hypertension. POSTOPERATIVE DIAGNOSIS: #1 chronic abdominal wall wound. 2. Morbid obesity. 3. Tobacco use disorder. 4. COPD. 5. Diabetes mellitus type 2. 6. Hypertension. OPERATION: Surgical, sharp, excisional debridement of chronic abdominal wall wound. SURGEON: [place] ALVES REVIEW MANAGER: None. ANESTHESIA: LMAC TISSUE REMOVED OR ALTERED: Partially nonviable skin, subcutaneous tissue and scar. COMPLICATIONS: None. ESTIMATED BLOOD LOSS: 5 mL. INTRAOPERATIVE FINDINGS: Mostly healed 8 cm incision in the midline abdomen supraumbilical. A pinpoint opening to the right of the scar extending space inferior laterally. The depth about 2.5 cm. The width 1.5 cm and the length about 2 cm. This area was unroofed and debrided. The removed materials were submitted for pathology and for wound cultures. PROCEDURE: PROCEDURE: The abdomen was prepared with [Betadine] and draped out with sterile linen. After the"universal time-out", in which it was confirmed that the patient [did receive antibiotic], the procedure commenced. The patient was appropriately anesthetized. The wound was probed. A hemostat was used to probe the opening which demonstrated the direction and extend the wound. The overlying skin was now excised also attached subcutaneous tissue. This allowed tracing the wound quite deeply and up to 2.5 cm through a small approximately 1 mm opening in the subcutaneous cavity. The wound was debrided of non viable tissue using a curette, with removal of loose debris, as well. The wound was irrigated with [Peroxide].The wound was now irrigated with saline and [Surgicel] placed within it, dressed with gauze and the procedure concluded.
[2017-12-08 17:54] VITALS: BP 120/73
== END 2017-12-08 17:30 | disposition home or self-care (01) ==
LOC: OROUT 12:21
PROVIDERS: ATTEND Surgery
DX: Z01.818 Encounter for other preprocedural examination (principal); T81.32XD Disruption of internal operation (surgical) wound, not elsewhere classified, subsequent encounter; Y83.8 Other surgical procedures as the cause of abnormal reaction of the patient, or of later complication, without mention of misadventure at the time of the procedure; E11.9 Type 2 diabetes mellitus without complications; A49.02 Methicillin resistant Staphylococcus aureus infection, unspecified site; M79.7 Fibromyalgia; F32.9 Major depressive disorder, single episode, unspecified; J44.9 Chronic obstructive pulmonary disease, unspecified; I10 Essential (primary) hypertension; F17.210 Nicotine dependence, cigarettes, uncomplicated; R01.1 Cardiac murmur, unspecified; I20.9 Angina pectoris, unspecified; K21.9 Gastro-esophageal reflux disease without esophagitis; E78.5 Hyperlipidemia, unspecified; R06.02 Shortness of breath; E66.01 Morbid (severe) obesity due to excess calories; Z87.11 Personal history of peptic ulcer disease; Z88.8 Allergy status to other drugs, medicaments and biological substances; Z68.43 Body mass index [BMI] 50.0-59.9, adult; Z79.4 Long term (current) use of insulin; Z79.84 Long term (current) use of oral hypoglycemic drugs
CPT/HCPCS: 36415; 87070; 87205; 82962; 85027; 81025; 87075; 87077; 80048; 87186; 88304 ×2; 94640; 11042; J2250; J3010; J3490; J2704; A9270; 700